=== PATIENT | female | born 1945 | race Caucasian/White ===

== ENCOUNTER 2019-01-21 19:28 | Observation (INO) ==
--- NOTE | 2019-01-21 20:38 | Emergency Department Note ---
Disposition Clinical Impression: End stage renal disease, Missed dialysis Disposition: Admitted As Inpatient Condition: Fair Referrals: NONE,PCP [Primary Care Provider] - Time of Disposition: 20:38 General Adult HPI - General Chief complaint: ED General Medical Stated complaint: has not had dialysis Time Seen by Provider: 01/21/19 19:45 Source: patient, family Limitations: no limitations Nursing Notes Reviewed: Yes Vital Signs Reviewed: Yes - History of Present Illness HPI Narrative: Attestation note: Patient was seen with the emergency medicine resident/nurse pract itioner/physician human resources executive assistant/transitional resident/medical student: Dr. Sourav Smith, I was present for the significant portions of the performance and interpretation of procedures and EKGs. I have personally performed a face to face evaluation on this patient. I have reviewed and agree with history and physical examination patient management and disposition. 74-year-old female history of end-stage renal disease on did not dialysis on Monday due to lack of access Monday had a port placed on 1 month today they went up 3 pounds off and it did not work her urologist Dr. Evans requested family commands be evaluated and admitted for port placement and dialysis. EKG shows what appears to be paced rhythm without signs of any acute ischemic changes or acute hyperkalemic changes. Patient's O lites are pending we are paging Dr. Evans directly. Patient appears hemodynamically stable. Disposition pending Pain Scale: 7 - Related Data Allergies Allergy/AdvReac Type Severity Reaction Status Date / Time codeine AdvReac Hives Verified 01/21/19 19:45 Past Medical History - Past Medical History Medical history: Reports: atrial fibrillation, CVA, diabetes, hyperlipidemia, hypertension, thyroid disease Psychiatric history: Reports: bipolar - Social History Smoking Status: Current every day smoker Alcohol use: Reports: none Drug use: Reports: none Course Vital Signs Temperature 97.7 F 01/21/19 19:43 Pulse Rate 66 01/21/19 19:43 Respiratory Rate 16 01/21/19 19:43 Blood Pressure 153/79 01/21/19 19:43 O2 Sat by Pulse Oximetry 96 01/21/19 19:43 Temperature 97.7 F 01/21/19 20:13 Pulse Rate 66 01/21/19 20:13 Respiratory Rate 16 01/21/19 20:13 Blood Pressure 153/79 01/21/19 20:13 O2 Sat by Pulse Oximetry 96 01/21/19 20:13 Oxygen Delivery Oxygen Delivery Room Air
--- NOTE | 2019-01-21 20:41 | Emergency Department Note ---
Disposition Clinical Impression: End stage renal disease, Missed dialysis Disposition: Admitted As Inpatient Condition: Fair Forms: ED Satisfaction Letter, Work/School Release Time of Disposition: 21:23 General Adult HPI - General Chief complaint: ED General Medical Stated complaint: has not had dialysis Time Seen by Provider: 01/21/19 19:45 Source: patient Mode of arrival: ambulatory Limitations: no limitations Nursing Notes Reviewed: Yes Vital Signs Reviewed: Yes - History of Present Illness HPI Narrative: Patient is a 74-year-old female with past medical history of atrial fibrillation, CVA, diabetes, hypertension, thyroid disease, pacemaker, Graves' disease as well as history of back surgery presents to the ED for evaluation after missing dialysis. Patient states that she did not have dialysis last Monday when she is normally scheduled 2 and then on Monday she had a chest port placed for dialysis and that chest port worked on Monday however today during dialysis it stopped functioning and they are able to take off 3 pounds. She is primary complaining of shortness of breath at this time but no other associated symptoms. She is told to come into the ER for admission by Dr. Evans. - Related Data Allergies Allergy/AdvReac Type Severity Reaction Status Date / Time codeine AdvReac Hives Verified 01/21/19 21:27 All systems ED: reviewed and negative except as stated. Review of Systems: As Per HPI Constitutional: Denies: fever, chills Cardiovascular: Denies: chest pain, palpitations, dyspnea on exertion, edema, syncope, paroxysmal nocturnal dyspnea Respiratory: Reports: dyspnea. Denies: cough, wheezes, hemoptysis, sputum production Gastrointestinal: Denies: nausea, vomiting, diarrhea Past Medical History - Past Medical History Attestation: Yes The following information was validated with the patient. Medical history: Reports: atrial fibrillation, CVA, diabetes, hyperlipidemia, hypertension, thyroid disease Psychiatric history: Reports: bipolar - Social History Smoking Status: Current every day smoker Alcohol use: Reports: none Drug use: Reports: none Physical Exam CONSTITUTIONAL: A&O X 3, in no apparent distress HEAD: Normocephalic; atraumatic EYES: PERRL, no scleral icterus NOSE: The nose is normal in appearance without rhinorrhea NECK: No JVD or distended neck veins RESP: Normal chest excursion with respiration; breath sounds clear and equal bilaterally; no wheezes, rhonchi, or rales CARD: Regular rhythm, without murmurs, rub or gallop ABD: Distended; non-tender, soft, without rigidity, rebound or guarding,no pulsatile mass CHEST: No pain with palpation SKIN: Normal for age and race; warm and dry without diaphoresis ; no apparent lesions EXTREMITIES: Pulses are 2 plus and equal times 4 extremities, no peripheral edema or calf muscle pain Course Course Narrative: Patient was brought in for admission to the hospital by nephrology with Dr. Evans due to malfunctioning chest port which is inhibiting her from receiving her dialysis. She was able to undergo partial dialysis today and receiving 3 pounds of fluid removal. She will undergo evaluation of her electrolytes as well as a chest x-ray for dyspnea. Her initial EKG is a paced rhythm at 68 bpm with no signs of hyperacute T waves or interval prolongation. I discussed the patient's case with Dr. Rodriguez with nephrology and he recommended admission of the patient to be seen by IR tomorrow for dialysis line malfunction. Requested admission to obs. Will see her in the morning and consult IR. - Reevaluation(s) Reevaluation #1: ED workup is completed patient's potassium is little high at 5.4 creatinine is only like 2.4. Chest x-ray shows no florid pulmonary edema. Discussed case with the hospitalist Dr. Wong. Patient is admitted in stable condition. Consult was placed to nephrology and interventional radiology.. Time: 22:10 Vital Signs Temperature 97.7 F 01/21/19 19:43 Pulse Rate 66 01/21/19 19:43 Respiratory Rate 16 01/21/19 19:43 Blood Pressure 153/79 01/21/19 19:43 O2 Sat by Pulse Oximetry 96 01/21/19 19:43 Temperature 97.7 F 01/21/19 20:13 Pulse Rate 60 01/21/19 20:58 Respiratory Rate 16 01/21/19 20:58 Blood Pressure 150/79 01/21/19 20:58 O2 Sat by Pulse Oximetry 98 01/21/19 20:58 Oxygen Delivery Oxygen Delivery Room Air Medical Decision Making - Medical Records Medical records reviewed: Yes I reviewed the patient's medical records. - Lab Data Lab results reviewed: Yes I reviewed the patient's lab results. Result diagrams: 01/21/19 20:35 01/21/19 20:35 Lab Results 01/21/19 01/21/19 01/21/19 Range/Units 20:35 20:35 20:35 WBC 6.3 (4.3-11.1) K/mcL RBC 3.05 L (3.82-4.97) M/mcL Hgb 11.4 L (11.5-15.4) g/dL Hct 31.8 L (35.3-44.9) % MCV 104.3 H (83.0-100.0) fL MCH 37.4 H (28.0-33.3) pg MCHC 35.8 H (31.6-35.5) g/dL RDW 14.6 H (11.5-14.5) % Plt Count 160 (140-400) K/mcL MPV 9.6 (9.4-12.4) fL Sodium 134 L (136-145) mEq/L Potassium 5.4 H (3.5-5.1) mEq/L Chloride 98 (98-107) mEq/L Carbon Dioxide 27 (23-29) mEq/L BUN 39 H (8-23) mg/dL Creatinine 2.85 H (0.60-1.20) mg/dL Est GFR ( Amer) 20 L (> 60) Est GFR (Non-Af Amer) 16 L (> 60) BUN/Creatinine Ratio 14 (6-26) Glucose 235 H (70-105) mg/dL Calculated Osmolality 295 (280-300) Lactic Acid 1.3 (0.5-2.2) mmol/L Calcium 9.1 (8.6-10.3) mg/dL - EKG Data EKG #1 EKG attestation: Yes I reviewed and interpreted this EKG. EKG results narrative: EKG done at 20:24 shows paced rhythm at a rate of 68 bpm. Luis M - Luis M Situation: Demographics, MOA Background: Presenting Complaint, Relevant PMH, Meds, & Allergies Assessment: Vital Signs, Course and respsone to treatment, Exam Concerns, Patient/Family Expectation, Pertinant Lab Results, Outstanding Labs Recommendation: Barrier(s) to disposition, Recommendation based on pending studies, treatments, or consults S.Art.Brennon Report Given to: Dr. Keiko Asencio Repor Time: 21:23
[2019-01-21 20:47] LABS: Hematocrit 31.8 % (35.3-44.9); Hemoglobin 11.4 g/dL (11.5-15.4); Mean Corpuscular HGB Conc 35.8 g/dL (31.6-35.5); Mean Corpuscular Hemoglobin 37.4 pg (28.0-33.3); Mean Corpuscular Volume 104.3 fL (83.0-100.0); Mean Platelet Volume 9.6 fL (9.4-12.4); Platelet Count 160 K/mcL (140-400); Red Blood Count 3.05 M/mcL (3.82-4.97); Red Cell Distribution Width 14.6 % (11.5-14.5); White Blood Count 6.3 K/mcL (4.3-11.1)
[2019-01-21 21:09] LABS: Calcium 9.1 mg/dL (8.6-10.3); Potassium 5.4 mEq/L (3.5-5.1)
[2019-01-22] MEDS ORDERED: Naloxone 0.4 MG/ML INJ IVP PRN (00:37)
--- NOTE | 2019-01-22 00:43 | Internal Med History&Physical ---
Date of Encounter: 01/21/19 Time of Encounter: 23:30 Internal Medicine - H&P: HPI Chief complaint: End-stage renal disease Admitted From: Emergency Dept Plans for Post Hospital Care: Home History of present illness: Ms. Loaiza is a 74 year old female Patient came to the emergency room from dialysis after her access became unusable. Patient has a history of end-stage renal disease, for started dialysis in April of last year. She initially had a chest port site for her dialysis but this had to be removed and a fistula was placed in her right arm. This eventually became clotted off and patient was then given a second port in her chest. At dialysis this became compromised and was not able to be used. The fire fighting equipment specialist requested the patient go to the emergency room to be evaluated and eventually admitted to be seen by interventional radiology for a new access to be placed. She has associated shortness of breath but denies chest pain. In the emergency room patient's initial vital signs were within normal limits CBC: White count 6.3, hemoglobin 11.4, platelets 160 BMP: Sodium 134, potassium 5.4, creatinine 2.85, GFR 16, glucose 235. Lactic acid 1.3 Calcium 9.1 Chest x-ray negative for cardiopulmonary abnormality EKG demonstrated a paced rhythm with a rate of 68. No ischemic changes. Patient was admitted to the hospital for further management. Nephrology and interventional radiology consults were placed in the ER. Upon my evaluation, patient is resting comfortably in the ER bed in no acute distress. She denies chest pain, abdominal pain, nausea, vomiting, diarrhea, constipation and shortness of breath. She had a pacemaker placed secondary to a cardiac in 2011. She is insulin-dependent diabetic. She has family history notable for kidney failure in her father as well as diabetes. Her mother had diabetes as well and her grandfather had history of heart disease. She is a full code. Past Med Surg Social Fam HX - Past Medical History Medical history: atrial fibrillation, CVA, diabetes, hyperlipidemia, hypertens ion, thyroid disease Additional medical history: pacemaker, grave's disease Psychiatric history: bipolar - Past Surgical History Additional surgical history: back surgery x2, - Social History Smoking Status: Current every day smoker Alcohol use: none Drug use: none - Family History Father Name: Khai Family Member Ethnicity: Non- Living Status: Age at : 49 Hx Family Cardiac Disorders: Yes Hx Family Respiratory Disorders: Yes Hx Family GI Disorders: Yes Internal Medicine - H&P: Meds Allopurinol [Zyloprim 100 MG] 100 mg PO QAM 01/21/19 [History] Amlodipine Besylate 10 mg PO QAM 01/21/19 [History] Atorvastatin [Lipitor] 40 mg PO QAM 01/21/19 [History] Buspirone HCl [Buspar] 10 mg PO BID 01/21/19 [History] Calcium Acetate [Phos-LO] 667 mg PO DAILY 01/21/19 [History] Calcium Acetate [Phos-LO] 667 mg PO TIDWM 01/21/19 [History] DiphenhydraMINE [Benadryl] 25 mg PO HS PRN 01/21/19 [History] Fluticasone Propionate Nasal [Flonase] 1 spray NS DAILY PRN 01/21/19 [History] Furosemide [Lasix] 40 mg PO BID 01/21/19 [History] Insulin Glargine,Hum.rec.anlog [Basaglar Kwikpen U-100] 20 - 50 unit SQ HS PRN 01/21/19 [History] Levothyroxine Sodium [Euthyrox] 200 mcg PO QAM 01/21/19 [History] Lidocaine/Prilocaine [Emla] 1 appl TP AD 01/21/19 [History] Melatonin 10 mg PO HS PRN 01/21/19 [History] Paroxetine HCl [Paxil] 40 mg PO DAILY 01/21/19 [History] Potassium Chloride [K-Tab ER] 10 meq PO DAILY 01/21/19 [History] metOLazone [Zaroxolyn] 2.5 mg PO QAM 01/21/19 [History] Allergy/AdvReac Type Severity Reaction Status Date / Time codeine AdvReac Hives Verified 01/21/19 21:27 All Systems PM: A 10-system review of systems was performed and is negative for pertinent findings except as documented above in the HPI. - Constitutional Vitals: Temp Pulse Resp BP Pulse Ox 97.7 F 73 18 133/62 98 01/21/19 20:13 01/21/19 22:49 01/22/19 00:05 01/22/19 00:05 01/21/19 22:49 General appearance: Present: cooperative, A&O X 3, pleasant, no acute distress, answers questions appropriately Exam: - - Head Head exam: Present: normal inspection - Eye Eye exam: Present: EOMI, normal appearance - Respiratory Respiratory exam: Present: CTAB. Absent: chest wall tenderness, rales, respiratory distress, rhonchi, wheezes - Cardiovascular Cardiovascular exam: Present: RRR. Absent: diastolic murmur, systolic murmur - GI/Abdominal GI/Abdominal exam: Present: soft. Absent: tenderness - Extremities Exam Extremities exam: Present: warm, radial pulses palpable and symmetrical. Absent: calf tenderness, pedal edema, tenderness - Neurological Exam Neurological exam: Present: no focal deficits, strengths equal and symetr throughout. Absent: motor sensory deficit, facial droop, speech deficit - Skin Skin exam: Present: dry, normal color, warm Internal Med - H&P Results - Labs CBC & Chem 7: 01/21/19 20:35 01/21/19 20:35 Labs: Short CBC 01/21/19 Range/Units 20:35 WBC 6.3 (4.3-11.1) K/mcL Hgb 11.4 L (11.5-15.4) g/dL Hct 31.8 L (35.3-44.9) % Plt Count 160 (140-400) K/mcL BMP 01/21/19 20:35 Sodium 134 L Potassium 5.4 H Chloride 98 Carbon Dioxide 27 BUN 39 H Creatinine 2.85 H Glucose 235 H Calcium 9.1 - Impressions ITS Impressions Chest X-Ray 01/21/19 19:58 IMPRESSION: 1. No acute cardiopulmonary process identified. D/ / Marc Marley MD / Marc Marley MD Interpreting Provider: Marc Marley MD - Assessment and Plan (1) End stage renal disease Current Visit: Yes Status: Acute Assessment and plan: Patient has lost her dialysis access. This is the third time this has happened to her. Nephrology has contacted interventional radiology for assistance to have new access to be placed. Follow-up nephrology and interventional radiology recommendations Nothing by mouth after midnight AM labs with phosphorus (2) Hyperkalemia Current Visit: Yes Status: Acute Assessment and plan: Patient's potassium was 5.4 in the emergency room. Likely secondary to end- stage renal disease. She has been elevated in the past, normal range is 4-5. Repeat labs in the morning Arrange for dialysis with interventional radiology consultation (3) Diabetes Current Visit: Yes Status: Acute Assessment and plan: Patient is an insulin dependent diabetic Monitor sugars Q6H NPO Low dose insulin sliding scale as needed Hold home meds. 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
[2019-01-22 05:54] LABS: Prothrombin Time 11.4 Seconds (9.4-12.1)
[2019-01-22 05:58] LABS: Hematocrit 31.2 % (35.3-44.9); Hemoglobin 10.6 g/dL (11.5-15.4); Mean Corpuscular Hemoglobin 34.8 pg (28.0-33.3); Mean Corpuscular Volume 102.3 fL (83.0-100.0); Mean Platelet Volume 9.4 fL (9.4-12.4); Platelet Count 157 K/mcL (140-400); Red Blood Count 3.05 M/mcL (3.82-4.97); Red Cell Distribution Width 14.4 % (11.5-14.5); White Blood Count 6.3 K/mcL (4.3-11.1)
[2019-01-22 06:10] LABS: Albumin 3.8 g/dL (3.5-5.7); Albumin/Globulin Ratio 1.2 (1.1-2.2); Bilirubin,Total 0.4 mg/dL (0.3-1.0); Calcium 9.5 mg/dL (8.6-10.3); Globulin 3.3 g/dL (2.4-3.5); Phosphorous 3.9 mg/dL (2.7-4.5); Total Protein 7.1 g/dL (6.4-8.9)
[2019-01-22 08:11] LABS: Hepatitis B Surface Antibody < 3.10 mIU/mL
[2019-01-22 08:21] LABS: Hepatitis B Surface Antigen Nonreactive (Nonreactive)
[2019-01-22] MEDS ORDERED: *HR* HYDROcodone/Acet 5/325 mg TABLET PO ONE (08:56)
[2019-01-22] MEDS ORDERED: Heparin 1,000 UNITS/500 mL 500 ML ONE (09:08)
[2019-01-22] MEDS ORDERED: *HR* Heparin 5,000 UNIT/ML VIAL ONE (10:13)
[2019-01-22] MEDS ORDERED: Fluticasone Propionate Nasal 50 MCG/SPRAY BOTTLE NS PRN (10:52)
[2019-01-22] MEDS ORDERED: NON-FORMULARY MEDICATION 1 EACH EACH (Melatonin 10 MG) PO PRN (10:52)
[2019-01-22] MEDS ORDERED: *HR* Dextrose 50 % in Water (Syg) 50 ML SYRINGE IVP PRN (10:53)
[2019-01-22] MEDS ORDERED: D5% in Water 1,000 ML IVC PRN (10:53)
[2019-01-22] MEDS ORDERED: Dextrose Gel 15 GM/37.5 ML TUBE PO PRN ×2 (10:53)
--- NOTE | 2019-01-22 10:56 | Event Note ---
Date of Encounter: 01/22/19 Time of Encounter: 08:00 H&P reviewed. Patient with history of ESRD, atrial fibrillation, was admitted due to lack of dialysis access. Will get new HD catheter inserted by IR, resume HD as per nephro, and discharge home soon after HD if the catheter is working properly.
[2019-01-22] MEDS ORDERED: Melatonin 3 MG TABLET PO PRN (10:59)
--- NOTE | 2019-01-22 11:41 | Nephrology Consult Note ---
Date of Encounter: 01/22/19 Time of Encounter: 11:41 Assessment and Plan (1) End stage renal disease Status: Acute HD MWF. Renal vitamins. Renal dose medications. Renal diet. Additional dialysis and ultrafiltration as needed. The patient had her tunneled dialysis catheter exchange. We will arrange for dialysis today. If no problem with the dialysis access then okay for her to be discharged today History of Present Illness - Reason for Consult Consult date: 01/22/19 end stage renal disease - Chief Complaint line malfunction - History of Present Illness Ms. Loaiza is a 74 yo woman with a history of end-stage renal disease. She presents after her dialysis line was not operating properly on an outpatient basis. The patient has no new complaints. She denies chest pain, shortness of breath, nausea, vomiting, or diarrhea. She performs dialysis on a Monday was a Monday schedule. Past Med Surg Social Fam HX - Past Medical History Medical history: atrial fibrillation, CVA, diabetes, hyperlipidemia, hypertension, thyroid disease Additional medical history: pacemaker, grave's disease Psychiatric history: bipolar - Past Surgical History Additional surgical history: back surgery x2, - Social History Smoking Status: Current every day smoker Smokeless Tobacco Status: No Alcohol use: none Drug use: none - Family History Father Name: Khai Family Member Ethnicity: Non- Living Status: Age at : 49 Hx Family Cardiac Disorders: Yes Hx Family Respiratory Disorders: Yes Hx Family GI Disorders: Yes Medications and Allergies Allopurinol [Zyloprim 100 MG] 100 mg PO QAM 01/21/19 [History] Amlodipine Besylate 10 mg PO QAM 01/21/19 [History] Atorvastatin [Lipitor] 40 mg PO QAM 01/21/19 [History] Buspirone HCl [Buspar] 10 mg PO BID 01/21/19 [History] Calcium Acetate [Phos-LO] 667 mg PO DAILY 01/21/19 [History] Calcium Acetate [Phos-LO] 667 mg PO TIDWM 01/21/19 [History] DiphenhydraMINE [Benadryl] 25 mg PO HS PRN 01/21/19 [History] Fluticasone Propionate Nasal [Flonase] 1 spray NS DAILY PRN 01/21/19 [History] Furosemide [Lasix] 40 mg PO BID 01/21/19 [History] Insulin Glargine,Hum.rec.anlog [Anthonyaglar Prabhapen U-100] 20 - 50 unit SQ HS PRN 01/21/19 [History] Levothyroxine Sodium [Euthyrox] 200 mcg PO QAM 01/21/19 [History] Lidocaine/Prilocaine [Emla] 1 appl TP AD 01/21/19 [History] Melatonin 10 mg PO HS PRN 01/21/19 [History] Paroxetine HCl [Paxil] 40 mg PO DAILY 01/21/19 [History] Potassium Chloride [K-Tab ER] 10 meq PO DAILY 01/21/19 [History] metOLazone [Zaroxolyn] 2.5 mg PO QAM 01/21/19 [History] Allergy/AdvReac Type Severity Reaction Status Date / Time codeine AdvReac Hives Verified 01/21/19 21:27 Review of Systems All Systems: reviewed and no additional remarkable complaints except as stated (as documented in the history of present illness) Exam - Vital Signs Vital signs: Initial Vital Signs Temp Pulse Resp BP Pulse Ox 97.7 F 66 16 153/79 96 01/21/19 19:43 01/21/19 19:43 01/21/19 19:43 01/21/19 19:43 01/21/19 19:43 Vital Signs - Last 8 Hours Temp Pulse Resp BP Pulse Ox 01/22/19 11:33 97.6 F 67 16 126/70 96 01/22/19 08:40 97 01/22/19 07:39 97.7 F 67 16 128/71 97 01/22/19 04:17 97.6 F 65 17 124/79 97 Intake and Output 01/21/19 01/22/19 01/22/19 23:59 07:59 15:59 Intake Total 0 / 0 Balance 0 / 0 Intake: Oral 0 / 0 Other: Meal NPO Percent of Meal Consumed 0% # Voids 1 Weight 87.18 kg Blood Glucose* 140 215 - General Appearance General appearance: well-developed, well-nourished EENT: ATNC Neck: supple Respiratory: clear Cardiology: regular rate - Dialysis Access Dialysis Vascular Access: Venous Catheter Gastrointestinal: no tenderness Integumentary: warm and dry Neurologic: alert and oriented x3 Results - Lab Results 01/22/19 05:22 01/22/19 05:22 Most recent lab results 01/22/19 05:22 Calcium 9.5 Phosphorus 3.9 Consult Discharge Plan - Plan Instructions: Diabetes Mellitus Type 2 in Adults (DC) Referrals: Eric Salgado MD [Partnered Physician] - 01/30/19 10:30 am
[2019-01-22] MEDS ORDERED: Calcium Acetate 667 MG CAPSULE PO SCH (12:00)
[2019-01-22] MEDS: Insulin LISPRO 300 UNITS/3 ML VIAL SQ SCH ×2 (12:03→16:34)
--- NOTE | 2019-01-22 12:24 | IR Procedure Note ---
Date of procedure: 01/22/19 Consent Obtained: Verbal consent, Written consent Timeout: Correct patient and procedure verified, Correct site verified, Time out performed, Skin prep completed Was there an assistant refinery operator present: No Results/Findings: Tunneled HD catheter exchange performed Estimated blood loss (cc): 1 Complications: None; Tolerated procedure well Indications: Malfunctioning HD catheter Procedure Performed: Tunneled HD catheter exchange Site/Technique: Tunneled HD catheter exchanged in VIR Results/Findings (any specimens removed): New catheter in good position Post Procedure Treatment Plan: OK to use Specimen: None
[2019-01-22] MEDS ORDERED: *HR* Heparin 10,000 UNIT/10 ML VIAL IV PRN (15:05)
[2019-01-22] MEDS ORDERED: 0.9 % Sodium Chloride 250 ML IVC PRN (15:05)
--- NOTE | 2019-01-22 15:08 | Discharge Summary ---
- NOTES TO OUTPATIENT PROVIDER Notes to Outpatient Provider: Resume her usual HD schedule Orders not resulted at time of discharge: Pending orders 01/21/19 19:57 Urinalysis reflex Microscopic [URIN] Stat 01/23/19 04:00 Basic Metabolic Panel AM 0400 Phosphorous AM 0400 Date of Encounter: 01/22/19 Time of Encounter: 08:00 - Discharge Diagnosis (1) End stage renal disease Priority: Primary Status: Acute (2) Diabetes Priority: Secondary Status: Acute Qualifiers: Diabetes mellitus type: type 2 Diabetes mellitus custodial insulin use: with superintendent container terminal use Diabetes mellitus complication status: with hyperglycemia Qualified Code(s): E11.65 - Type 2 diabetes mellitus with hyperglycemia; Z79.4 - intermediate (current) use of insulin (3) Hyperkalemia Priority: Secondary Status: Acute (4) DVT prophylaxis Priority: Secondary Status: Acute Hospital course: Ms. Loaiza is a 74 year old female with history of ESRD, atrial fibrillation, who was admitted due to dysfunctional HD catheter. New tunnelled HD catheter was inserted by IR on 01/22, underwent short session of HD thereafter, and is discharged home in stable condition. Resume her usual HD schedule from tomorrow. 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 - Time Spent with Patient Total time spent providing and/or coordinating discharge services: 28 mins Time spent: D/C greater than 8 hours after Admission - Discharge Medications Prescriptions: Continued Allopurinol [Zyloprim 100 MG] 100 mg PO QAM Amlodipine Besylate 10 mg PO QAM Atorvastatin [Lipitor] 40 mg PO QAM Buspirone HCl [Buspar] 10 mg PO BID Calcium Acetate [Phos-LO] 667 mg PO TIDWM Calcium Acetate [Phos-LO] 667 mg PO DAILY Fluticasone Propionate Nasal [Flonase] 1 spray NS DAILY PRN PRN Reason: Allergy Symptoms Furosemide [Lasix] 40 mg PO BID Insulin Glargine,Hum.rec.anlog [Basaglar Kwikpen U-100] 20 - 50 unit SQ HS PRN PRN Reason: BLOOD GLUCOSE Levothyroxine Sodium [Euthyrox] 200 mcg PO QAM Lidocaine/Prilocaine [Emla] 1 appl TP AD metOLazone [Zaroxolyn] 2.5 mg PO QAM Paroxetine HCl [Paxil] 40 mg PO DAILY Potassium Chloride [K-Tab ER] 10 meq PO DAILY DiphenhydraMINE [Benadryl] 25 mg PO HS PRN PRN Reason: Sleep Melatonin 10 mg PO HS PRN PRN Reason: Sleep Home Medications: Allopurinol [Zyloprim 100 MG] 100 mg PO QAM 01/21/19 [History] Amlodipine Besylate 10 mg PO QAM 01/21/19 [History] Atorvastatin [Lipitor] 40 mg PO QAM 01/21/19 [History] Buspirone HCl [Buspar] 10 mg PO BID 01/21/19 [History] Calcium Acetate [Phos-LO] 667 mg PO DAILY 01/21/19 [History] Calcium Acetate [Phos-LO] 667 mg PO TIDWM 01/21/19 [History] DiphenhydraMINE [Benadryl] 25 mg PO HS PRN 01/21/19 [History] Fluticasone Propionate Nasal [Flonase] 1 spray NS DAILY PRN 01/21/19 [History] Furosemide [Lasix] 40 mg PO BID 01/21/19 [History] Insulin Glargine,Hum.rec.anlog [Basaglar Kwikpen U-100] 20 - 50 unit SQ HS PRN 01/21/19 [History] Levothyroxine Sodium [Euthyrox] 200 mcg PO QAM 01/21/19 [History] Lidocaine/Prilocaine [Emla] 1 appl TP AD 01/21/19 [History] Melatonin 10 mg PO HS PRN 01/21/19 [History] Paroxetine HCl [Paxil] 40 mg PO DAILY 01/21/19 [History] Potassium Chloride [K-Tab ER] 10 meq PO DAILY 01/21/19 [History] metOLazone [Zaroxolyn] 2.5 mg PO QAM 01/21/19 [History] Allergies/Adverse Reactions: Allergy/AdvReac Type Severity Reaction Status Date / Time codeine AdvReac Hives Verified 01/21/19 21:27 Date of admission: 01/21/19 23:59 Primary care physician: PCP NONE Consults: 01/21/19 20:46 Consult to Nephrology [CONS] Stat Consulting Provider: Kidney Maria Luz/RENÉE/JESUS/LINDA Reason for Consult: ESRD with Dialysis; Spoke with Dr. Rodriguez. Time Notified: 20:47 Call Completed: Yes 01/21/19 22:08 Consult to Interventional Radiology [CONS] Stat Consulting Provider: Radiology Interventional Cols Reason for Consult: Per nephrology to consult for new chest port access for dialysis: Port is not functioning Call Completed: No 01/22/19 07:48 Consult to Interventional Radiology [CONS] Routine Consulting Provider: Radiology Interventional Cols Reason for Consult: Tunnel cath exchange Time Notified: 07:48 Call Completed: Yes 01/22/19 09:20 Consult to Nurse Navigator [CONS] Routine Comment: hd - Constitutional Vitals: Temp Pulse Resp BP Pulse Ox 97.6 F 67 16 126/70 96 01/22/19 11:33 01/22/19 11:33 01/22/19 11:33 01/22/19 11:33 01/22/19 11:33 General appearance: Present: cooperative, A&O X 3, pleasant, no acute distress, answers questions appropriately Exam: General: Alert and oriented, not in acute distress. Cardiovascular:Normal S1 & S2, No JVD. Pulse regular. Chest: HD catheter in situ on R upper chest wall. Dressing c/d/i Lungs: clear to auscultation, no wheezes/rales Abdomen:Soft, non-tender, no rigidity. Extremities:No deformity or swelling Neurological:Normal cognition and motor skills. Non-focal - Patient Status Disposition: Home, Self-Care Condition: Fair Overall status at discharge: patient is progressing back to baseline - Discharge Instructions Instructions: Diabetes Mellitus Type 2 in Adults (DC) Follow Up With: NONE,PCP [Primary Care Provider] - - Diet and Activity Activity: resume usual activities as tolerated Diet: diabetic diet
[2019-01-22] MEDS ORDERED: 0.9 % Sodium Chloride 1,000 ML PRIME SCH (15:15)
[2019-01-22] MEDS ORDERED: Furosemide 40 MG TABLET PO SCH ×2 (17:00→21:00)
[2019-01-22] MEDS ORDERED: 0.9 % Sodium Chloride 1,000 ML ONE (17:08)
[2019-01-22 17:47] VITALS: BP 156/85
[2019-01-22] MEDS ORDERED: Insulin LISPRO 300 UNITS/3 ML VIAL SQ SCH (21:00)
[2019-01-22] MEDS ORDERED: BUSPIRONE HCL 10 MG TABLET PO SCH (21:00)
[2019-01-23] MEDS ORDERED: metOLazone 2.5 MG TABLET PO SCH ×2 (07:30→09:00)
[2019-01-23] MEDS ORDERED: NON-FORMULARY MEDICATION 1 EACH EACH (Levothyroxine Sodium [Euthyrox] 200 MCG) PO SCH (09:00)
[2019-01-23] MEDS ORDERED: amLODIPine 5 MG TABLET PO SCH (09:00)
--- NOTE | 2019-01-23 18:18 | Electrocardiograph Report ---
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 Sinus or ectopic atrial rhythm, 1st degree AVB Prolonged QT interval Electronically Signed On 01-23-2019 18:16:30 EDT by Binta Mckinney
== END 2019-01-22 17:58 | disposition home or self-care (01) ==
LOC: EMEROOARM 19:28 → 2ANU 19:28 → SUATTDRO 23:59 → 2ANU 01-22 00:37
PROVIDERS: ADMIT Family Medicine; ATTEND Internal Medicine

== ENCOUNTER 2019-06-06 09:58 | Inpatient (IN) ==
[2019-06-06] MEDS ORDERED: Naloxone 0.4 MG/ML INJ IVP PRN (12:03)
[2019-06-06] MEDS ORDERED: D5% in Water 1,000 ML IVC PRN (12:07)
[2019-06-06] MEDS ORDERED: Dextrose Gel 15 GM/37.5 ML TUBE PO PRN ×2 (12:07)
[2019-06-06] MEDS ORDERED: *HR* Dextrose 50 % in Water (Syg) 50 ML SYRINGE IVP PRN (12:07)
[2019-06-06 13:42] LABS: Basophils # 0.1 K/mcL (0.0-0.2); Basophils % 0.5 %; Eosinophils # 0.2 K/mcL (0.0-0.6); Eosinophils % 1.5 %; Hematocrit 40.6 % (35.3-44.9); Hemoglobin 14.6 g/dL (11.5-15.4); Immature Granulocytes % 0.7 % (0-4); Lymphocytes # 1.3 K/mcL (0.6-4.6); Lymphocytes % 11.8 %; Mean Corpuscular Hemoglobin 36.6 pg (28.0-33.3); Mean Corpuscular Volume 101.8 fL (83.0-100.0); Mean Platelet Volume 9.6 fL (9.4-12.4); Monocytes # 0.4 K/mcL (0.0-1.3); Monocytes % 3.2 %; Neutrophils # 9.3 K/mcL (1.6-8.9); Platelet Count 215 K/mcL (140-400); Red Blood Count 3.99 M/mcL (3.82-4.97); Red Cell Distribution Width 13.1 % (11.5-14.5); Segmented Neutrophils % 82.3 %; White Blood Count 11.3 K/mcL (4.3-11.1)
[2019-06-06 13:45] LABS: INR 1.1; Prothrombin Time 12.2 Seconds (9.4-12.1)
[2019-06-06] MEDS ORDERED: Ipratropium/Albuterol Neb 3 ML IH PRN (14:03)
[2019-06-06 14:13] LABS: Calcium 9.1 mg/dL (8.6-10.3); Magnesium 1.7 mg/dL (1.6-2.6); Potassium 3.4 mEq/L (3.5-5.1); Troponin I 0.09 ng/mL (< 0.04)
[2019-06-06] MEDS ORDERED: Fluticasone Propionate Nasal 50 MCG/SPRAY BOTTLE NS PRN (15:41)
[2019-06-06] MEDS ORDERED: levETIRAcetam 1,000 MG in 0.9 % Sodium Chloride 100 ML IVPB ONE (15:42)
[2019-06-06] MEDS ORDERED: *HR* LORazepam 2 MG/ML VIAL IVP PRN (15:43)
[2019-06-06] MEDS ORDERED: Cholecalciferol (D-3) 1,000 UNIT (25MCG) TABLET PO SCH (15:45)
[2019-06-06] MEDS: Insulin LISPRO 300 UNITS/3 ML VIAL SQ SCH ×2 (17:17→20:50)
[2019-06-06] MEDS: Acetaminophen 325 MG TABLET PO PRN (18:13)
[2019-06-06] MEDS ORDERED: Perit. Dialysis with Dex 2.5 % 6,000 ML PERITONEAL ONE (19:00)
[2019-06-06] MEDS ORDERED: cefTRIAXone 2,000 MG in Water for inj. (sterile) 20 ML IVP SCH (19:00)
[2019-06-06 19:26] LABS: Bilirubin,Urine Small (Negative); Blood,Urine Moderate (Negative); Clarity,Urine Turbid (Clear); Color,Urine Yellow (Yellow); Glucose,Urine (UA) Normal (Normal); Ketones,Urine Trace mg/dL (Negative); Leukocyte Esterase,Urine Large (Negative); Nitrite,Urine Negative (Negative); Protein,Urine 100 mg/dL (Neg-Trace); Specific Gravity,Urine 1.023 (1.010-1.025); Urobilinogen,Urine Normal (Normal)
[2019-06-06 19:27] LABS: Bacteria,Urine Many per hpf (None-Few); Squamous Epithelial Cell,Urine Many per lpf (None-Few); WBC,Urine TNTC per hpf (0-3)
[2019-06-06] MEDS: Calcium Acetate 667 MG CAPSULE PO SCH (19:32)
[2019-06-06] MEDS ORDERED: 0.9 % Sodium Chloride 500 ML IVC ONE (19:37)
[2019-06-06 19:40] LABS: RBC,Urine Present per hpf (0-3)
[2019-06-06 19:43] LABS: Hepatitis B Surface Antibody 7.25 mIU/mL
[2019-06-06] MEDS ORDERED: 0.9 % Sodium Chloride 500 ML ONE (19:51)
[2019-06-06 19:55] LABS: Hepatitis B Surface Antigen Nonreactive (Nonreactive)
[2019-06-06] MEDS ORDERED: Furosemide 40 MG TABLET PO SCH (21:00)
[2019-06-06] MEDS ORDERED: Acetaminophen IV 500 MG/50 ML INFUS..BTL IVPB ONE (22:23)
[2019-06-07 02:38] LABS: Basophils # 0.1 K/mcL (0.0-0.2); Basophils % 0.5 %; Eosinophils # 0.3 K/mcL (0.0-0.6); Eosinophils % 2.6 %; Hematocrit 33.6 % (35.3-44.9); Immature Granulocytes % 1.2 % (0-4); Lymphocytes # 1.7 K/mcL (0.6-4.6); Mean Corpuscular HGB Conc 35.7 g/dL (31.6-35.5); Mean Corpuscular Hemoglobin 36.5 pg (28.0-33.3); Mean Corpuscular Volume 102.1 fL (83.0-100.0); Mean Platelet Volume 10.1 fL (9.4-12.4); Monocytes # 0.6 K/mcL (0.0-1.3); Monocytes % 5.6 %; Neutrophils # 8.4 K/mcL (1.6-8.9); Platelet Count 181 K/mcL (140-400); Red Blood Count 3.29 M/mcL (3.82-4.97); Red Cell Distribution Width 13.2 % (11.5-14.5); Segmented Neutrophils % 75.1 %; White Blood Count 11.2 K/mcL (4.3-11.1)
[2019-06-07] MEDS: Acetaminophen 325 MG TABLET PO PRN (02:45)
[2019-06-07] MEDS: levETIRAcetam 250 MG TABLET PO SCH ×2 (06:03→17:17)
[2019-06-07 06:37] LABS: Calcium 8.8 mg/dL (8.6-10.3); Magnesium 1.4 mg/dL (1.6-2.6); Potassium 3.3 mEq/L (3.5-5.1)
[2019-06-07 07:58] LABS: Estimated Average Glucose 243 mg/dl
[2019-06-07] MEDS ORDERED: Calcium Acetate 667 MG CAPSULE PO PRN (08:11)
[2019-06-07] MEDS ORDERED: metOLazone 2.5 MG TABLET PO SCH (09:00)
[2019-06-07] MEDS ORDERED: Calcium Acetate 667 MG CAPSULE PO SCH (09:00)
[2019-06-07] MEDS: cefTRIAXone 2,000 MG in 0.9 % Sodium Chloride Mini Bag 100 ML IVPB SCH (09:42)
[2019-06-07] MEDS: Insulin LISPRO 300 UNITS/3 ML VIAL SQ SCH ×4 (09:48→20:46)
[2019-06-07] MEDS: Calcium Acetate 667 MG CAPSULE PO SCH ×3 (09:50→17:17)
[2019-06-07] MEDS: Aspirin Enteric Coated 81 MG Tablet PO SCH (09:50)
[2019-06-07] MEDS: Furosemide 40 MG TABLET PO SCH ×2 (09:53→17:17)
[2019-06-07] MEDS: metOLazone 2.5 MG TABLET PO SCH (09:53)
[2019-06-07] MEDS: Perit. Dialysis with Dex 2.5 % 12,000 ML PERITONEAL ONE ×2 (10:14→18:32)
[2019-06-07] MEDS: Perit. Dialysis with Dex 1.5 % 6,000 ML PERITONEAL ONE ×2 (10:14→18:30)
[2019-06-07 10:37] LABS: RBC,Peritoneal Fluid < 0.002 M/mcL
[2019-06-07 10:39] LABS: Appearance of Peritoneal Fl CLEAR (Clear)
[2019-06-07] MEDS ORDERED: Vancomycin 500 MG in 0.9 % Sodium Chloride Mini Bag 100 ML IVPB ONE (11:32)
[2019-06-07] MEDS ORDERED: Vancomycin 1 EACH in 0.9 % Sodium Chloride 250 ML IVPB PRN (12:00)
[2019-06-07 12:29] LABS: Basophils,Peritoneal Fluid 0 %
[2019-06-07] MEDS ORDERED: traMADol 50 MG TABLET PO PRN (13:21)
[2019-06-07] MEDS: *HR* OxyCODONE Immed Rel 5 MG TABLET PO PRN ×2 (14:26→22:52)
[2019-06-07] MEDS ORDERED: Methyl Salicylate/Menthol 28 GM TUBE TP PRN (16:29)
[2019-06-07] MEDS: Methyl Salicylate/Menthol 57 APPL/57 GM TUBE TP PRN (17:41)
[2019-06-07] MEDS ORDERED: Perit. Dialysis with Dex 2.5 % 6,000 ML PERITONEAL ONE (19:00)
[2019-06-07] MEDS ORDERED: Perit. Dialysis with Dex 1.5 % 6,000 ML PERITONEAL ONE (19:00)
[2019-06-07] MEDS ORDERED: rOPINIRole 0.25 MG TABLET PO ONE (20:04)
[2019-06-07] MEDS: Insulin DETEMIR 100 UNIT/ML X5UNITS SQ SCH (20:44)
[2019-06-07] MEDS: Melatonin 3 MG TABLET PO PRN (20:46)
[2019-06-08] MEDS: Methyl Salicylate/Menthol 57 APPL/57 GM TUBE TP PRN (02:55)
[2019-06-08] MEDS ORDERED: *HR* OxyCODONE Immed Rel 5 MG TABLET PO ONE (03:18)
[2019-06-08] MEDS ORDERED: 0.9 % Sodium Chloride 250 ML IVC ONE (03:44)
[2019-06-08] MEDS ORDERED: 0.9 % Sodium Chloride 250 ML ONE (03:46)
[2019-06-08 04:17] LABS: Basophils # 0.1 K/mcL (0.0-0.2); Basophils % 0.6 %; Eosinophils # 0.3 K/mcL (0.0-0.6); Eosinophils % 2.5 %; Hematocrit 40.1 % (35.3-44.9); Lymphocytes # 1.5 K/mcL (0.6-4.6); Lymphocytes % 13.9 %; Mean Corpuscular HGB Conc 36.7 g/dL (31.6-35.5); Mean Corpuscular Hemoglobin 35.9 pg (28.0-33.3); Mean Platelet Volume 10.2 fL (9.4-12.4); Monocytes # 0.6 K/mcL (0.0-1.3); Monocytes % 5.1 %; Neutrophils # 8.4 K/mcL (1.6-8.9); Platelet Count 219 K/mcL (140-400); Red Blood Count 4.09 M/mcL (3.82-4.97); Red Cell Distribution Width 13.3 % (11.5-14.5); Segmented Neutrophils % 76.9 %
[2019-06-08 04:19] LABS: Hemoglobin 14.7 g/dL (11.5-15.4)
[2019-06-08 04:40] LABS: Calcium 9.2 mg/dL (8.6-10.3); Potassium 3.1 mEq/L (3.5-5.1)
[2019-06-08] MEDS: levETIRAcetam 250 MG TABLET PO SCH ×2 (04:58→17:19)
[2019-06-08 05:08] LABS: Magnesium 1.7 mg/dL (1.6-2.6)
[2019-06-08] MEDS: metOLazone 2.5 MG TABLET PO SCH (08:45)
[2019-06-08] MEDS: Calcium Acetate 667 MG CAPSULE PO SCH ×3 (08:46→17:16)
[2019-06-08] MEDS: Furosemide 40 MG TABLET PO SCH ×2 (08:46→17:16)
[2019-06-08] MEDS: Aspirin Enteric Coated 81 MG Tablet PO SCH (08:46)
[2019-06-08] MEDS: cefTRIAXone 2,000 MG in 0.9 % Sodium Chloride Mini Bag 100 ML IVPB SCH (08:50)
[2019-06-08] MEDS: Insulin LISPRO 300 UNITS/3 ML VIAL SQ SCH ×4 (09:09→20:15)
[2019-06-08] MEDS: *HR* OxyCODONE Immed Rel 5 MG TABLET PO PRN ×2 (12:03→20:09)
[2019-06-08] MEDS ORDERED: Perit. Dialysis with Dex 1.5 % 6,000 ML PERITONEAL ONE (19:00)
[2019-06-08] MEDS ORDERED: Perit. Dialysis with Dex 2.5 % 6,000 ML PERITONEAL ONE (19:00)
[2019-06-08] MEDS: Perit. Dialysis with Dex 1.5 % 6,000 ML PERITONEAL ONE (19:36)
[2019-06-08] MEDS: Melatonin 3 MG TABLET PO PRN (20:11)
[2019-06-08] MEDS: Insulin DETEMIR 100 UNIT/ML X5UNITS SQ SCH (20:14)
[2019-06-09] MEDS: Methyl Salicylate/Menthol 57 APPL/57 GM TUBE TP PRN ×2 (00:50→20:26)
[2019-06-09] MEDS ORDERED: rOPINIRole 0.25 MG TABLET PO ONE (01:37)
[2019-06-09] MEDS: levETIRAcetam 250 MG TABLET PO SCH ×2 (06:15→17:07)
[2019-06-09 07:58] LABS: Basophils # 0.1 K/mcL (0.0-0.2); Basophils % 0.5 %; Calcium 9.4 mg/dL (8.6-10.3); Eosinophils # 0.5 K/mcL (0.0-0.6); Eosinophils % 4.1 %; Hemoglobin 13.7 g/dL (11.5-15.4); Immature Granulocytes % 0.8 % (0-4); Lymphocytes # 1.1 K/mcL (0.6-4.6); Lymphocytes % 9.5 %; Mean Corpuscular HGB Conc 35.1 g/dL (31.6-35.5); Mean Corpuscular Hemoglobin 36.2 pg (28.0-33.3); Mean Corpuscular Volume 103.2 fL (83.0-100.0); Mean Platelet Volume 9.9 fL (9.4-12.4); Monocytes # 0.6 K/mcL (0.0-1.3); Monocytes % 5.7 %; Neutrophils # 8.9 K/mcL (1.6-8.9); Platelet Count 152 K/mcL (140-400); Potassium 3.4 mEq/L (3.5-5.1); Red Blood Count 3.78 M/mcL (3.82-4.97); Red Cell Distribution Width 13.6 % (11.5-14.5); Segmented Neutrophils % 79.4 %; White Blood Count 11.2 K/mcL (4.3-11.1)
[2019-06-09] MEDS: Insulin LISPRO 300 UNITS/3 ML VIAL SQ SCH ×4 (08:12→20:25)
[2019-06-09] MEDS: *HR* OxyCODONE Immed Rel 5 MG TABLET PO PRN ×2 (08:13→15:41)
[2019-06-09] MEDS: Furosemide 40 MG TABLET PO SCH ×2 (08:14→16:38)
[2019-06-09] MEDS: Calcium Acetate 667 MG CAPSULE PO SCH ×3 (08:14→16:39)
[2019-06-09] MEDS: Aspirin Enteric Coated 81 MG Tablet PO SCH (08:14)
[2019-06-09] MEDS: metOLazone 2.5 MG TABLET PO SCH (08:15)
[2019-06-09] MEDS ORDERED: Perit. Dialysis with Dex 2.5 % 6,000 ML PERITONEAL ONE (19:00)
[2019-06-09] MEDS ORDERED: Perit. Dialysis with Dex 1.5 % 6,000 ML PERITONEAL ONE (19:00)
[2019-06-09] MEDS: Melatonin 3 MG TABLET PO PRN (20:25)
[2019-06-09] MEDS: Insulin DETEMIR 100 UNIT/ML X5UNITS SQ SCH (20:26)
[2019-06-09] MEDS: rOPINIRole 0.25 MG TABLET PO PRN (23:13)
[2019-06-10] MEDS: *HR* OxyCODONE Immed Rel 5 MG TABLET PO PRN ×3 (00:56→20:49)
[2019-06-10] MEDS: levETIRAcetam 250 MG TABLET PO SCH ×2 (05:39→16:57)
[2019-06-10 07:55] LABS: Basophils # 0.1 K/mcL (0.0-0.2); Basophils % 0.5 %; Eosinophils # 0.5 K/mcL (0.0-0.6); Eosinophils % 4.8 %; Hematocrit 35.9 % (35.3-44.9); Hemoglobin 13.3 g/dL (11.5-15.4); Immature Granulocytes % 1.3 % (0-4); Lymphocytes # 1.2 K/mcL (0.6-4.6); Lymphocytes % 10.6 %; Mean Corpuscular Hemoglobin 36.7 pg (28.0-33.3); Mean Corpuscular Volume 99.2 fL (83.0-100.0); Mean Platelet Volume 10.4 fL (9.4-12.4); Monocytes # 0.6 K/mcL (0.0-1.3); Monocytes % 5.6 %; Platelet Count 154 K/mcL (140-400); Red Blood Count 3.62 M/mcL (3.82-4.97); Red Cell Distribution Width 13.7 % (11.5-14.5); Segmented Neutrophils % 77.2 %; White Blood Count 10.9 K/mcL (4.3-11.1)
[2019-06-10 08:34] LABS: Neutrophils # 8.4 K/mcL (1.6-8.9)
[2019-06-10 09:49] LABS: Potassium 4.4 mEq/L (3.5-5.1)
[2019-06-10 09:50] LABS: Calcium 9.3 mg/dL (8.6-10.3)
[2019-06-10] MEDS: Insulin LISPRO 300 UNITS/3 ML VIAL SQ SCH ×4 (09:58→21:47)
[2019-06-10] MEDS: metOLazone 2.5 MG TABLET PO SCH (09:58)
[2019-06-10] MEDS: Aspirin Enteric Coated 81 MG Tablet PO SCH (09:58)
[2019-06-10] MEDS: Calcium Acetate 667 MG CAPSULE PO SCH ×3 (09:58→16:57)
[2019-06-10] MEDS: Furosemide 40 MG TABLET PO SCH ×2 (09:58→16:57)
[2019-06-10] MEDS: Gentamicin Oint 15 GM TUBE TP SCH (10:19)
[2019-06-10] MEDS ORDERED: Aminoglycoside Consult 1 EACH MC ONE (12:20)
[2019-06-10] MEDS: Perit. Dialysis with Dex 1.5 % 6,000 ML PERITONEAL ONE ×2 (18:35→18:36)
[2019-06-10] MEDS ORDERED: Perit. Dialysis with Dex 2.5 % 6,000 ML PERITONEAL ONE (19:00)
[2019-06-10] MEDS: Insulin DETEMIR 100 UNIT/ML X5UNITS SQ SCH (20:50)
[2019-06-10] MEDS: rOPINIRole 0.25 MG TABLET PO PRN (20:57)
[2019-06-11] MEDS: levETIRAcetam 250 MG TABLET PO SCH (06:11)
[2019-06-11 07:33] VITALS: BP 124/75
[2019-06-11] MEDS: metOLazone 2.5 MG TABLET PO SCH (09:35)
[2019-06-11] MEDS: *HR* OxyCODONE Immed Rel 5 MG TABLET PO PRN (09:36)
[2019-06-11] MEDS: Furosemide 40 MG TABLET PO SCH (09:37)
[2019-06-11] MEDS: Calcium Acetate 667 MG CAPSULE PO SCH (09:37)
[2019-06-11] MEDS: Aspirin Enteric Coated 81 MG Tablet PO SCH (09:37)
[2019-06-11] MEDS: Insulin LISPRO 300 UNITS/3 ML VIAL SQ SCH (09:37)
[2019-06-11] MEDS: Gentamicin Oint 15 GM TUBE TP SCH (09:58)
[2019-06-11 11:25] LABS: Calcium 9.5 mg/dL (8.6-10.3)
[2019-06-11 11:31] LABS: Basophils # 0.1 K/mcL (0.0-0.2); Basophils % 0.4 %; Eosinophils # 0.5 K/mcL (0.0-0.6); Hematocrit 39.4 % (35.3-44.9); Hemoglobin 13.4 g/dL (11.5-15.4); Immature Granulocytes % 0.7 % (0-4); Lymphocytes % 8.1 %; Mean Corpuscular Hemoglobin 36.2 pg (28.0-33.3); Mean Platelet Volume 10.3 fL (9.4-12.4); Monocytes # 0.7 K/mcL (0.0-1.3); Monocytes % 5.6 %; Neutrophils # 9.8 K/mcL (1.6-8.9); Platelet Count 158 K/mcL (140-400); Red Cell Distribution Width 13.7 % (11.5-14.5); Segmented Neutrophils % 81.2 %; White Blood Count 12.1 K/mcL (4.3-11.1)
[2019-06-11 11:49] LABS: Mean Corpuscular Volume 106.5 fL (83.0-100.0)
== END 2019-06-11 12:21 | disposition home health service (06) | DRG 689 ==
LOC: 2ANU → SUATTDRO 11:43
PROVIDERS: ADMIT Internal Medicine; ATTEND Internal Medicine

== ENCOUNTER 2019-07-10 23:54 | Inpatient (IN) ==
[2019-07-11] MEDS ORDERED: Naloxone 0.4 MG/ML INJ IVP PRN (02:49)
[2019-07-11 02:57] LABS: Basophils % 0.3 %; Eosinophils # 0.3 K/mcL (0.0-0.6); Eosinophils % 2.5 %; Hematocrit 30.5 % (35.3-44.9); Hemoglobin 10.8 g/dL (11.5-15.4); Lymphocytes # 0.9 K/mcL (0.6-4.6); Lymphocytes % 8.5 %; Mean Corpuscular HGB Conc 35.4 g/dL (31.6-35.5); Mean Corpuscular Hemoglobin 35.6 pg (28.0-33.3); Mean Corpuscular Volume 100.7 fL (83.0-100.0); Mean Platelet Volume 10.4 fL (9.4-12.4); Monocytes # 0.5 K/mcL (0.0-1.3); Monocytes % 4.7 %; Neutrophils # 8.7 K/mcL (1.6-8.9); Platelet Count 136 K/mcL (140-400); Red Blood Count 3.03 M/mcL (3.82-4.97); White Blood Count 10.5 K/mcL (4.3-11.1)
[2019-07-11 03:13] LABS: Albumin 2.9 g/dL (3.5-5.7); Albumin/Globulin Ratio 0.9 (1.1-2.2); Bilirubin,Total 0.3 mg/dL (0.3-1.0); Calcium 8.4 mg/dL (8.6-10.3); Globulin 3.3 g/dL (2.4-3.5); Magnesium 1.9 mg/dL (1.6-2.6); Phosphorous 3.3 mg/dL (2.7-4.5); Potassium 2.6 mEq/L (3.5-5.1); Total Protein 6.2 g/dL (6.4-8.9); Troponin I 0.08 ng/mL (< 0.04)
[2019-07-11] MEDS ORDERED: Potassium Chloride Elixir 20 MEQ/15 ML UDC PO ONE ×2 (03:20→05:30)
[2019-07-11] MEDS ORDERED: Potassium Chloride 40 MEQ, Lidocaine 1% 2 ML in 0.9 % Sodium Chloride 500 ML IVPB ONE (03:22)
[2019-07-11] MEDS ORDERED: Dextrose Gel 15 GM/37.5 ML TUBE PO PRN ×2 (05:03)
[2019-07-11] MEDS ORDERED: D5% in Water 1,000 ML IVC PRN (05:03)
[2019-07-11] MEDS ORDERED: *HR* Dextrose 50 % in Water (Syg) 50 ML SYRINGE IVP PRN (05:03)
[2019-07-11] MEDS: levETIRAcetam 250 MG TABLET PO SCH ×2 (05:29→17:58)
[2019-07-11] MEDS: Insulin LISPRO 300 UNITS/3 ML VIAL SQ SCH ×4 (07:46→22:51)
[2019-07-11] MEDS: Potassium Chloride Elixir 20 MEQ/15 ML UDC PO SCH (07:47)
[2019-07-11] MEDS: Calcium Acetate 667 MG CAPSULE PO SCH ×3 (07:47→17:58)
[2019-07-11] MEDS: Aspirin Enteric Coated 81 MG Tablet PO SCH (07:47)
[2019-07-11] MEDS: 0.9 % Sodium Chloride 1,000 ML IVC SCH ×2 (10:33→21:04)
[2019-07-11] MEDS: Piperacillin/Tazobactam 3.375 GM in 0.9 % Sodium Chloride Mini Bag 100 ML IVPB SCH ×2 (10:33→17:59)
[2019-07-11 11:14] LABS: Bilirubin,Urine Moderate (Negative); Blood,Urine Negative (Negative); Clarity,Urine Clear (Clear); Color,Urine Yellow (Yellow); Glucose,Urine (UA) Normal (Normal); Ketones,Urine 15 mg/dL (Negative); Leukocyte Esterase,Urine Negative (Negative); Nitrite,Urine Negative (Negative); PH,Urine 5.5 pH Units (5.0-8.0); Protein,Urine 30 mg/dL (Neg-Trace); Specific Gravity,Urine 1.025 (1.010-1.025); Urobilinogen,Urine Normal (Normal)
[2019-07-11 11:39] LABS: Bacteria,Urine None Seen per hpf (None-Few); Hyaline Casts,Urine Few per lpf (None-Few); Squamous Epithelial Cell,Urine Many per lpf (None-Few); WBC,Urine 0-3 per hpf (0-3)
[2019-07-11] MEDS ORDERED: Melatonin 3 MG TABLET PO PRN (12:17)
[2019-07-11] MEDS ORDERED: Methyl Salicylate/Menthol 57 APPL/57 GM TUBE TP PRN (12:17)
[2019-07-11 14:02] LABS: Hepatitis B Surface Antibody < 3.10 mIU/mL
[2019-07-11 14:10] LABS: Potassium 3.5 mEq/L (3.5-5.1); Troponin I 0.08 ng/mL (< 0.04)
[2019-07-11 14:13] LABS: Hepatitis B Surface Antigen Nonreactive (Nonreactive)
[2019-07-11] MEDS: *HR* Heparin 5,000 UNIT/ML VIAL SQ SCH (18:15)
[2019-07-11] MEDS: Perit. Dialysis with Dex 1.5 % 12,000 ML PERITONEAL ONE (20:12)
[2019-07-12 04:38] LABS: Basophils % 0.5 %; Eosinophils # 0.3 K/mcL (0.0-0.6); Eosinophils % 4.3 %; Hematocrit 27.8 % (35.3-44.9); Hemoglobin 9.3 g/dL (11.5-15.4); Immature Granulocytes % 1.5 % (0-4); Lymphocytes # 0.6 K/mcL (0.6-4.6); Lymphocytes % 7.2 %; Mean Corpuscular HGB Conc 33.5 g/dL (31.6-35.5); Mean Corpuscular Hemoglobin 35.4 pg (28.0-33.3); Mean Corpuscular Volume 105.7 fL (83.0-100.0); Mean Platelet Volume 10.1 fL (9.4-12.4); Monocytes # 0.4 K/mcL (0.0-1.3); Monocytes % 5.2 %; Neutrophils # 6.5 K/mcL (1.6-8.9); Nucleated Red Blood Cells 0.3 /100 WBC (0); Platelet Count 115 K/mcL (140-400); Red Blood Count 2.63 M/mcL (3.82-4.97); Red Cell Distribution Width 14.2 % (11.5-14.5); Segmented Neutrophils % 81.3 %
[2019-07-12 04:59] LABS: Calcium 7.9 mg/dL (8.6-10.3); Magnesium 1.5 mg/dL (1.6-2.6); Potassium 3.4 mEq/L (3.5-5.1)
[2019-07-12 05:11] LABS: Troponin I 0.08 ng/mL (< 0.04)
[2019-07-12] MEDS: levETIRAcetam 250 MG TABLET PO SCH ×2 (05:40→17:03)
[2019-07-12] MEDS: *HR* Heparin 5,000 UNIT/ML VIAL SQ SCH ×2 (05:43→17:03)
[2019-07-12] MEDS: Piperacillin/Tazobactam 3.375 GM in 0.9 % Sodium Chloride Mini Bag 100 ML IVPB SCH ×2 (05:44→17:03)
[2019-07-12] MEDS: Aspirin Enteric Coated 81 MG Tablet PO SCH (09:33)
[2019-07-12] MEDS: Insulin LISPRO 300 UNITS/3 ML VIAL SQ SCH ×4 (09:33→20:31)
[2019-07-12] MEDS: Calcium Acetate 667 MG CAPSULE PO SCH ×3 (09:33→17:03)
[2019-07-12] MEDS: Potassium Chloride Elixir 20 MEQ/15 ML UDC PO SCH (09:36)
[2019-07-12] MEDS ORDERED: Isovue-370 500 ML BOTTLE IVP ONE (10:21)
[2019-07-12] MEDS: 0.9 % Sodium Chloride 1,000 ML IVC SCH (10:34)
[2019-07-12] MEDS: predniSONE 20 MG TABLET PO SCH (17:02)
[2019-07-12] MEDS: Perit. Dialysis with Dex 1.5 % 12,000 ML PERITONEAL ONE ×2 (18:53→19:39)
[2019-07-13 05:07] LABS: Calcium 8.6 mg/dL (8.6-10.3); Potassium 4.5 mEq/L (3.5-5.1)
[2019-07-13] MEDS: predniSONE 20 MG TABLET PO SCH ×2 (06:30)
[2019-07-13] MEDS: levETIRAcetam 250 MG TABLET PO SCH ×2 (06:30→17:14)
[2019-07-13] MEDS: Piperacillin/Tazobactam 3.375 GM in 0.9 % Sodium Chloride Mini Bag 100 ML IVPB SCH (06:31)
[2019-07-13] MEDS: *HR* Heparin 5,000 UNIT/ML VIAL SQ SCH ×3 (06:31→18:22)
[2019-07-13] MEDS: Calcium Acetate 667 MG CAPSULE PO SCH ×3 (09:07→17:14)
[2019-07-13] MEDS: Aspirin Enteric Coated 81 MG Tablet PO SCH (09:07)
[2019-07-13] MEDS: Potassium Chloride Elixir 20 MEQ/15 ML UDC PO SCH (09:07)
[2019-07-13] MEDS: Insulin LISPRO 300 UNITS/3 ML VIAL SQ SCH ×4 (09:08→21:20)
[2019-07-13] MEDS ORDERED: 0.9 % Sodium Chloride 500 ML IVC ONE (11:45)
[2019-07-13 17:36] LABS: Basophils % 0.1 %; Hematocrit 24.1 % (35.3-44.9); Hemoglobin 8.5 g/dL (11.5-15.4); Immature Granulocytes % 1.4 % (0-4); Lymphocytes # 0.4 K/mcL (0.6-4.6); Lymphocytes % 3.8 %; Mean Corpuscular HGB Conc 35.3 g/dL (31.6-35.5); Mean Corpuscular Hemoglobin 36.2 pg (28.0-33.3); Mean Corpuscular Volume 102.6 fL (83.0-100.0); Mean Platelet Volume 10.5 fL (9.4-12.4); Monocytes # 0.3 K/mcL (0.0-1.3); Monocytes % 3.6 %; Neutrophils # 8.6 K/mcL (1.6-8.9); Platelet Count 126 K/mcL (140-400); Red Blood Count 2.35 M/mcL (3.82-4.97); Red Cell Distribution Width 14.4 % (11.5-14.5); Segmented Neutrophils % 91.1 %; White Blood Count 9.5 K/mcL (4.3-11.1)
[2019-07-13] MEDS ORDERED: Perit. Dialysis with Dex 1.5 % 12,000 ML PERITONEAL ONE (19:00)
[2019-07-13] MEDS: Perit. Dialysis with Dex 1.5 % 12,000 ML PERITONEAL ONE (20:04)
[2019-07-13] MEDS: Mirtazapine 15 MG TABLET PO SCH (20:42)
[2019-07-13] MEDS ORDERED: Insulin DETEMIR 100 UNIT/ML X5UNITS SQ SCH ×2 (21:00)
[2019-07-13] MEDS: Insulin DETEMIR 100 UNIT/ML X5UNITS SQ SCH (21:21)
[2019-07-14 05:22] LABS: Basophils % 0.1 %; Hematocrit 26.3 % (35.3-44.9); Hemoglobin 8.7 g/dL (11.5-15.4); Immature Granulocytes % 1.2 % (0-4); Lymphocytes # 0.6 K/mcL (0.6-4.6); Mean Corpuscular HGB Conc 33.1 g/dL (31.6-35.5); Mean Corpuscular Hemoglobin 34.9 pg (28.0-33.3); Mean Corpuscular Volume 105.6 fL (83.0-100.0); Mean Platelet Volume 10.2 fL (9.4-12.4); Monocytes # 0.5 K/mcL (0.0-1.3); Monocytes % 3.6 %; Neutrophils # 12.5 K/mcL (1.6-8.9); Platelet Count 154 K/mcL (140-400); Red Blood Count 2.49 M/mcL (3.82-4.97); Red Cell Distribution Width 14.3 % (11.5-14.5); Segmented Neutrophils % 91.1 %; White Blood Count 13.8 K/mcL (4.3-11.1)
[2019-07-14] MEDS: levETIRAcetam 250 MG TABLET PO SCH ×2 (06:09→17:05)
[2019-07-14] MEDS: *HR* Heparin 5,000 UNIT/ML VIAL SQ SCH ×2 (06:09→17:45)
[2019-07-14] MEDS: Insulin LISPRO 300 UNITS/3 ML VIAL SQ SCH ×4 (09:14→22:10)
[2019-07-14] MEDS: Potassium Chloride Elixir 20 MEQ/15 ML UDC PO SCH (09:15)
[2019-07-14] MEDS: Calcium Acetate 667 MG CAPSULE PO SCH ×3 (09:16→16:45)
[2019-07-14] MEDS: Aspirin Enteric Coated 81 MG Tablet PO SCH (09:16)
[2019-07-14] MEDS ORDERED: Perit. Dialysis with Dex 1.5 % 12,000 ML PERITONEAL ONE (19:00)
[2019-07-14] MEDS: Gentamicin Oint 15 GM TUBE TP SCH (20:40)
[2019-07-14] MEDS: Insulin DETEMIR 100 UNIT/ML X5UNITS SQ SCH (22:09)
[2019-07-14] MEDS: Mirtazapine 15 MG TABLET PO SCH (22:09)
[2019-07-15] MEDS: levETIRAcetam 250 MG TABLET PO SCH ×2 (06:22→17:20)
[2019-07-15] MEDS: *HR* Heparin 5,000 UNIT/ML VIAL SQ SCH ×2 (06:22→17:20)
[2019-07-15 06:28] LABS: Basophils % 0.2 %; Eosinophils # 0.2 K/mcL (0.0-0.6); Hematocrit 25.2 % (35.3-44.9); Hemoglobin 8.8 g/dL (11.5-15.4); Immature Granulocytes % 1.8 % (0-4); Lymphocytes # 0.8 K/mcL (0.6-4.6); Lymphocytes % 8.1 %; Mean Corpuscular HGB Conc 34.9 g/dL (31.6-35.5); Mean Corpuscular Hemoglobin 36.1 pg (28.0-33.3); Mean Corpuscular Volume 103.3 fL (83.0-100.0); Mean Platelet Volume 9.6 fL (9.4-12.4); Monocytes # 0.5 K/mcL (0.0-1.3); Monocytes % 5.7 %; Neutrophils # 7.8 K/mcL (1.6-8.9); Platelet Count 148 K/mcL (140-400); Red Blood Count 2.44 M/mcL (3.82-4.97); Red Cell Distribution Width 14.5 % (11.5-14.5); Segmented Neutrophils % 82.2 %; White Blood Count 9.5 K/mcL (4.3-11.1)
[2019-07-15 06:49] LABS: Calcium 8.2 mg/dL (8.6-10.3); Potassium 4.1 mEq/L (3.5-5.1)
[2019-07-15] MEDS: Insulin LISPRO 300 UNITS/3 ML VIAL SQ SCH ×4 (09:00→20:54)
[2019-07-15] MEDS: Calcium Acetate 667 MG CAPSULE PO SCH ×3 (09:00→17:20)
[2019-07-15] MEDS: Potassium Chloride Elixir 20 MEQ/15 ML UDC PO SCH (09:00)
[2019-07-15] MEDS: Aspirin Enteric Coated 81 MG Tablet PO SCH (09:00)
[2019-07-15] MEDS ORDERED: Perit. Dialysis with Dex 1.5 % 12,000 ML PERITONEAL ONE (19:00)
[2019-07-15] MEDS: Gentamicin Oint 15 GM TUBE TP SCH (19:51)
[2019-07-15] MEDS: Mirtazapine 15 MG TABLET PO SCH (20:53)
[2019-07-15] MEDS: Insulin DETEMIR 100 UNIT/ML X5UNITS SQ SCH (20:54)
[2019-07-16 04:08] LABS: Calcium 7.9 mg/dL (8.6-10.3); Potassium 4.3 mEq/L (3.5-5.1)
[2019-07-16] MEDS: levETIRAcetam 250 MG TABLET PO SCH ×2 (05:38→17:35)
[2019-07-16] MEDS: *HR* Heparin 5,000 UNIT/ML VIAL SQ SCH ×2 (05:38→17:34)
[2019-07-16] MEDS: Insulin LISPRO 300 UNITS/3 ML VIAL SQ SCH ×4 (09:52→21:35)
[2019-07-16] MEDS: Potassium Chloride Elixir 20 MEQ/15 ML UDC PO SCH (10:02)
[2019-07-16] MEDS: Calcium Acetate 667 MG CAPSULE PO SCH ×3 (10:03→17:35)
[2019-07-16] MEDS: Aspirin Enteric Coated 81 MG Tablet PO SCH (10:03)
[2019-07-16] MEDS: Perit. Dialysis with Dex 1.5 % 12,000 ML PERITONEAL ONE (18:54)
[2019-07-16] MEDS ORDERED: Perit. Dialysis with Dex 1.5 % 12,000 ML PERITONEAL ONE (19:00)
[2019-07-16] MEDS: Mirtazapine 15 MG TABLET PO SCH (21:35)
[2019-07-16] MEDS: Insulin DETEMIR 100 UNIT/ML X5UNITS SQ SCH (21:36)
[2019-07-17] MEDS: *HR* Heparin 5,000 UNIT/ML VIAL SQ SCH (06:09)
[2019-07-17] MEDS: levETIRAcetam 250 MG TABLET PO SCH (06:09)
[2019-07-17 06:19] LABS: Calcium 7.9 mg/dL (8.6-10.3)
[2019-07-17 07:30] VITALS: BP 124/53
[2019-07-17] MEDS: Potassium Chloride Elixir 20 MEQ/15 ML UDC PO SCH (09:35)
[2019-07-17] MEDS: Insulin LISPRO 300 UNITS/3 ML VIAL SQ SCH (09:37)
[2019-07-17] MEDS: Aspirin Enteric Coated 81 MG Tablet PO SCH (09:38)
[2019-07-17] MEDS: Calcium Acetate 667 MG CAPSULE PO SCH (09:38)
== END 2019-07-17 17:08 | DRG 871 ==
LOC: 2NENU → SUATTDRO 07-12 13:29
PROVIDERS: ADMIT Internal Medicine; ATTEND Internal Medicine

== ENCOUNTER 2019-09-02 16:10 | Inpatient (IN) ==
[2019-09-02] MEDS ORDERED: cefTRIAXone 1,000 MG in Water for inj. (sterile) 10 ML IVP ONE (19:16)
[2019-09-02] MEDS ORDERED: 0.9 % Sodium Chloride 1,000 ML IVC SCH (19:30)
[2019-09-02] MEDS ORDERED: Naloxone 0.4 MG/ML INJ IVP PRN (20:05)
[2019-09-02] MEDS ORDERED: Dextrose Gel 15 GM/37.5 ML TUBE PO PRN ×2 (20:08)
[2019-09-02] MEDS ORDERED: D5% in Water 1,000 ML IVC PRN (20:08)
[2019-09-02] MEDS ORDERED: *HR* Dextrose 50 % in Water (Syg) 50 ML SYRINGE IVP PRN (20:08)
[2019-09-02] MEDS ORDERED: Melatonin 3 MG TABLET PO PRN (20:11)
[2019-09-02] MEDS ORDERED: rOPINIRole 0.25 MG TABLET PO PRN (20:11)
[2019-09-02 20:15] LABS: Adenovirus Not Detected (Not Detect); Bordetella Pertussis Not Detected (Not Detect); Chlamydophila pneumoniae Not Detected (Not Detect); Coronavirus 229E Not Detected (Not Detect); Coronavirus HKU1 Not Detected (Not Detect); Coronavirus NL63 Not Detected (Not Detect); Coronavirus OC43 Not Detected (Not Detect); Human Metapneumovirus Not Detected (Not Detect); Human Rhinovirus/Enterovirus Not Detected (Not Detect); Influenza A Subtype 2009 H1 Not Detected (Not Detect); Influenza B Not Detected (Not Detect); Mycoplasma pneumoniae Not Detected (Not Detect); Parainfluenza Virus 1 Not Detected (Not Detect); Parainfluenza Virus 2 Not Detected (Not Detect); Parainfluenza Virus 3 Not Detected (Not Detect); Parainfluenza Virus 4 Not Detected (Not Detect); Respiratory Syncytial Virus Not Detected (Not Detect)
[2019-09-02] MEDS: Pantoprazole 40 MG VIAL IVP SCH (21:30)
[2019-09-02] MEDS: Insulin LISPRO 300 UNITS/3 ML VIAL SQ SCH (21:38)
[2019-09-02 22:34] LABS: Basophils % 0.1 %; Eosinophils # 0.1 K/mcL (0.0-0.6); Eosinophils % 0.7 %; Hematocrit 18.7 % (35.3-44.9); Hemoglobin 6.3 g/dL (11.5-15.4); Immature Granulocytes % 0.8 % (0-4); Lymphocytes # 0.6 K/mcL (0.6-4.6); Lymphocytes % 6.5 %; Mean Corpuscular HGB Conc 33.7 g/dL (31.6-35.5); Mean Corpuscular Hemoglobin 32.3 pg (28.0-33.3); Mean Corpuscular Volume 95.9 fL (83.0-100.0); Mean Platelet Volume 9.1 fL (9.4-12.4); Monocytes # 0.4 K/mcL (0.0-1.3); Monocytes % 4.1 %; Neutrophils # 7.4 K/mcL (1.6-8.9); Nucleated Red Blood Cells 0.2 /100 WBC (0); Platelet Count 246 K/mcL (140-400); Red Blood Count 1.95 M/mcL (3.82-4.97); Red Cell Distribution Width 16.6 % (11.5-14.5); Segmented Neutrophils % 87.8 %; White Blood Count 8.5 K/mcL (4.3-11.1)
[2019-09-02 22:38] LABS: INR 1.5; Prothrombin Time 17.5 Seconds (9.4-12.1)
[2019-09-02 22:54] LABS: Albumin 2.2 g/dL (3.5-5.7); Albumin/Globulin Ratio 0.8 (1.1-2.2); Bilirubin,Total 0.4 mg/dL (0.3-1.0); Calcium 7.4 mg/dL (8.6-10.3); Globulin 2.7 g/dL (2.4-3.5); Magnesium 1.3 mg/dL (1.6-2.6); Phosphorous 3.6 mg/dL (2.7-4.5); Potassium 2.8 mEq/L (3.5-5.1); Total Protein 4.9 g/dL (6.4-8.9)
[2019-09-02] MEDS ORDERED: 0.9 % Sodium Chloride 1,000 ML IV ONE (22:56)
[2019-09-02] MEDS ORDERED: MAGNESIUM SULFATE IVPB ONE (22:57)
[2019-09-02] MEDS ORDERED: SODIUM CHLORIDE 0.9% IVPB ONE (22:57)
[2019-09-02] MEDS ORDERED: Magnesium Sulfate 3 GM in 0.9 % Sodium Chloride 100 ML IVPB ONE (23:15)
[2019-09-02] MEDS ORDERED: 0.9 % Sodium Chloride 250 ML ONE (23:23)
[2019-09-02 23:24] LABS: Estimated Average Glucose 180 mg/dl
[2019-09-02] MEDS ORDERED: Vancomycin (wt based) 1,000 MG VIAL IVPB SCH (23:45)
[2019-09-02 23:56] LABS: VBG HCO3 13 mEq/L (21-27); VBG PCO2 24 mmHg (41-51); VBG PH 7.35 pH Units (7.32-7.42); VBG PO2 212 mmHg (25-50)
[2019-09-03] MEDS: Insulin LISPRO 300 UNITS/3 ML VIAL SQ SCH ×5 (00:06→23:51)
[2019-09-03] MEDS: MetroNIDAZOLE 500 MG/100 ML 500 MG/100 ML BAG IVPB SCH ×3 (00:08→21:24)
[2019-09-03] MEDS ORDERED: 0.9 % Sodium Chloride 500 ML IVC SCH (04:00)
[2019-09-03] MEDS ORDERED: levoFLOXacin 750 MG/150 ML 750 MG/150 ML BAG IVPB ONE (06:00)
[2019-09-03] MEDS: Pantoprazole 40 MG VIAL IVP SCH (06:09)
[2019-09-03] MEDS ORDERED: Ipratropium/Albuterol Neb 3 ML IH ONE (06:25)
[2019-09-03 06:56] LABS: Basophils % 0.2 %; Eosinophils # 0.1 K/mcL (0.0-0.6); Eosinophils % 1.3 %; Hematocrit 26.4 % (35.3-44.9); Immature Granulocytes % 0.9 % (0-4); Lymphocytes # 0.6 K/mcL (0.6-4.6); Lymphocytes % 5.7 %; Mean Corpuscular HGB Conc 33.3 g/dL (31.6-35.5); Mean Corpuscular Hemoglobin 31.8 pg (28.0-33.3); Mean Corpuscular Volume 95.3 fL (83.0-100.0); Mean Platelet Volume 9.4 fL (9.4-12.4); Monocytes # 0.7 K/mcL (0.0-1.3); Monocytes % 6.6 %; Neutrophils # 8.4 K/mcL (1.6-8.9); Nucleated Red Blood Cells 0.3 /100 WBC (0); Platelet Count 232 K/mcL (140-400); Red Blood Count 2.77 M/mcL (3.82-4.97); Red Cell Distribution Width 17.9 % (11.5-14.5); Segmented Neutrophils % 85.3 %; White Blood Count 9.8 K/mcL (4.3-11.1)
[2019-09-03 06:57] LABS: Hemoglobin 8.8 g/dL (11.5-15.4)
[2019-09-03 07:47] LABS: BUN/Creatinine Ratio 11 (6-26); Blood Urea Nitrogen 47 mg/dL (8-23); Calcium 7.5 mg/dL (8.6-10.3); Carbon Dioxide 20 mEq/L (23-29); Chloride 101 mEq/L (98-107); Glucose 132 mg/dL (70-105); Osmolality,Calculated 292 (280-300); Potassium 3.6 mEq/L (3.5-5.1); Sodium 134 mEq/L (136-145); Thyroid Stimulating Hormone 0.184 mcIU/mL (0.340-5.600); Troponin I 0.04 ng/mL (< 0.04); Vancomycin,Random < 2 mcg/mL; eGFR For African Americans 13 (> 60); eGFR For Non-African Americans 10 (> 60)
[2019-09-03] MEDS ORDERED: metOLazone 2.5 MG TABLET PO SCH (09:00)
[2019-09-03] MEDS ORDERED: amLODIPine 5 MG TABLET PO SCH (09:00)
[2019-09-03] MEDS ORDERED: Aspirin Enteric Coated 81 MG Tablet PO SCH (09:00)
[2019-09-03] MEDS ORDERED: Metoprolol XL (24 HR) Succ 50 MG TAB.ER.24H PO SCH ×2 (09:00)
[2019-09-03] MEDS ORDERED: Perit. Dialysis with Dex 1.5 % 2,000 ML PERITONEAL ONE (10:43)
[2019-09-03] MEDS ORDERED: *HR* LORazepam 2 MG/ML VIAL IVP PRN ×2 (13:46→16:42)
[2019-09-03] MEDS ORDERED: Gentamicin Oint 15 GM TUBE TP SCH ×2 (15:42→15:45)
[2019-09-03] MEDS ORDERED: Naloxone 0.4 MG/ML INJ IVP PRN (16:42)
[2019-09-03] MEDS ORDERED: D5% in Water 1,000 ML IVC PRN (16:42)
[2019-09-03] MEDS ORDERED: *HR* Dextrose 50 % in Water (Syg) 50 ML SYRINGE IVP PRN (16:42)
[2019-09-03] MEDS ORDERED: rOPINIRole 0.25 MG TABLET PO PRN (16:42)
[2019-09-03] MEDS ORDERED: Dextrose Gel 15 GM/37.5 ML TUBE PO PRN ×2 (16:42)
[2019-09-03 18:51] LABS: Hematocrit 25.9 % (35.3-44.9); Hemoglobin 8.7 g/dL (11.5-15.4)
[2019-09-03] MEDS ORDERED: Perit. Dialysis with Dex 2.5 % 12,000 ML PERITONEAL ONE ×2 (19:00→21:00)
[2019-09-03 20:36] LABS: Hepatitis B Surface Antigen Nonreactive (Nonreactive)
[2019-09-03] MEDS: Gentamicin Oint 15 GM TUBE TP SCH (22:03)
[2019-09-03 22:06] LABS: Bilirubin,Urine Moderate (Negative); Blood,Urine Moderate (Negative); Clarity,Urine Turbid (Clear); Color,Urine Dark Yellow (Yellow); Glucose,Urine (UA) Normal (Normal); Ketones,Urine Trace mg/dL (Negative); Leukocyte Esterase,Urine Large (Negative); Nitrite,Urine Negative (Negative); Protein,Urine Trace mg/dL (Neg-Trace); Specific Gravity,Urine 1.024 (1.010-1.025); Urobilinogen,Urine Normal (Normal)
[2019-09-03 22:10] LABS: Bacteria,Urine Few per hpf (None-Few); RBC,Urine 15-30 per hpf (0-3); Squamous Epithelial Cell,Urine Many per lpf (None-Few); WBC,Urine TNTC per hpf (0-3)
[2019-09-03 22:24] LABS: Yeast,Urine Moderate per hpf (None Seen)
[2019-09-03 22:27] LABS: Appearance of Peritoneal Fl CLOUDY (Clear)
[2019-09-03 22:29] LABS: Basophils,Peritoneal Fluid 0 %; Eosinophils,Peritoneal Fluid 0 %
[2019-09-03] MEDS: Nystatin Cream 15 GM TUBE TP SCH (22:38)
[2019-09-04 03:45] LABS: Hepatitis B Surface Antibody 12.45 mIU/mL
[2019-09-04 05:32] LABS: INR 1.5; Prothrombin Time 17.4 Seconds (9.4-12.1)
[2019-09-04 05:35] LABS: Activated Partial Thrombo Time 29.9 Seconds (26.0-36.0)
[2019-09-04 05:51] LABS: Albumin 2.2 g/dL (3.5-5.7); Albumin/Globulin Ratio 0.7 (1.1-2.2); Bilirubin,Total 0.4 mg/dL (0.3-1.0); Magnesium 1.9 mg/dL (1.6-2.6); Potassium 2.9 mEq/L (3.5-5.1); Total Protein 5.2 g/dL (6.4-8.9)
[2019-09-04] MEDS: MetroNIDAZOLE 500 MG/100 ML 500 MG/100 ML BAG IVPB SCH ×4 (06:01→21:32)
[2019-09-04] MEDS: Insulin LISPRO 300 UNITS/3 ML VIAL SQ SCH ×3 (06:02→16:30)
[2019-09-04] MEDS ORDERED: Calcium Gluconate 1gm/50mL 1 GM/50 ML BAG IVPB PRN (06:45)
[2019-09-04] MEDS ORDERED: Potassium Phosphate 44 MEQ in 0.9 % Sodium Chloride 250 ML IVPB PRN (06:45)
[2019-09-04] MEDS: Aspirin Enteric Coated 81 MG Tablet PO SCH (07:35)
[2019-09-04] MEDS: levETIRAcetam 250 MG TABLET PO SCH (07:35)
[2019-09-04 07:39] LABS: Basophils % 0.1 %; Eosinophils # 0.2 K/mcL (0.0-0.6); Eosinophils % 2.8 %; Hematocrit 25.3 % (35.3-44.9); Hemoglobin 8.6 g/dL (11.5-15.4); Immature Granulocytes % 0.7 % (0-4); Lymphocytes # 0.5 K/mcL (0.6-4.6); Mean Corpuscular Hemoglobin 31.7 pg (28.0-33.3); Mean Corpuscular Volume 93.4 fL (83.0-100.0); Mean Platelet Volume 9.3 fL (9.4-12.4); Monocytes # 0.4 K/mcL (0.0-1.3); Monocytes % 4.7 %; Nucleated Red Blood Cells 0.2 /100 WBC (0); Platelet Count 217 K/mcL (140-400); Red Blood Count 2.71 M/mcL (3.82-4.97); Red Cell Distribution Width 18.3 % (11.5-14.5); Segmented Neutrophils % 85.7 %; White Blood Count 8.2 K/mcL (4.3-11.1)
[2019-09-04] MEDS: Gentamicin Oint 15 GM TUBE TP SCH (07:39)
[2019-09-04] MEDS: Nystatin Cream 15 GM TUBE TP SCH ×3 (07:39→21:35)
[2019-09-04] MEDS ORDERED: levETIRAcetam 250 MG TABLET PO SCH (09:00)
[2019-09-04] MEDS ORDERED: Metoprolol XL (24 HR) Succ 50 MG TAB.ER.24H PO SCH (09:00)
[2019-09-04] MEDS: *HR* Heparin 5,000 UNIT/ML VIAL SQ SCH (16:29)
[2019-09-04] MEDS ORDERED: Perit. Dialysis with Dex 1.5 % 12,000 ML PERITONEAL ONE (19:00)
[2019-09-04] MEDS ORDERED: *HR* Heparin 5,000 UNIT/ML VIAL SQ SCH (21:00)
[2019-09-05] MEDS ORDERED: Menthol 9.1 MG LOZENGE PO PRN (00:11)
[2019-09-05] MEDS: Insulin LISPRO 300 UNITS/3 ML VIAL SQ SCH ×5 (01:05→23:49)
[2019-09-05] MEDS: Levalbuterol Neb 1.25 MG/3 ML IH SCH ×2 (04:04→10:54)
[2019-09-05 04:12] LABS: Basophils % 0.3 %; Eosinophils # 0.3 K/mcL (0.0-0.6); Eosinophils % 3.7 %; Hematocrit 26.6 % (35.3-44.9); Immature Granulocytes % 0.8 % (0-4); Lymphocytes # 0.5 K/mcL (0.6-4.6); Lymphocytes % 5.9 %; Mean Corpuscular HGB Conc 33.8 g/dL (31.6-35.5); Mean Corpuscular Hemoglobin 30.7 pg (28.0-33.3); Mean Corpuscular Volume 90.8 fL (83.0-100.0); Mean Platelet Volume 9.4 fL (9.4-12.4); Monocytes # 0.5 K/mcL (0.0-1.3); Monocytes % 4.9 %; Neutrophils # 7.8 K/mcL (1.6-8.9); Nucleated Red Blood Cells 0.5 /100 WBC (0); Platelet Count 260 K/mcL (140-400); Red Blood Count 2.93 M/mcL (3.82-4.97); Segmented Neutrophils % 84.4 %; White Blood Count 9.2 K/mcL (4.3-11.1)
[2019-09-05 04:27] LABS: Potassium 3.2 mEq/L (3.5-5.1)
[2019-09-05] MEDS: MetroNIDAZOLE 500 MG/100 ML 500 MG/100 ML BAG IVPB SCH ×3 (04:42→21:06)
[2019-09-05] MEDS ORDERED: levoFLOXacin 500 MG/100 ML 500 MG/100 ML BAG IVPB SCH ×2 (06:00)
[2019-09-05] MEDS: *HR* Heparin 5,000 UNIT/ML VIAL SQ SCH (06:43)
[2019-09-05] MEDS: Aspirin Enteric Coated 81 MG Tablet PO SCH (09:12)
[2019-09-05] MEDS: levETIRAcetam 250 MG TABLET PO SCH (09:12)
[2019-09-05] MEDS: Metoprolol XL (24 HR) Succ 25 MG TAB.ER.24H PO SCH (09:12)
[2019-09-05] MEDS: Nystatin Cream 15 GM TUBE TP SCH ×3 (09:13→21:06)
[2019-09-05] MEDS: Gentamicin Oint 15 GM TUBE TP SCH (09:13)
[2019-09-05] MEDS ORDERED: 0.9 % Sodium Chloride 1,000 ML IVC SCH (14:00)
[2019-09-05] MEDS ORDERED: *HR* Propofol 200 MG/20 ML VIAL IVP ONE (14:30)
[2019-09-05] MEDS ORDERED: Lidocaine -MPF 2% 2 ML VIAL ONE (14:30)
[2019-09-05] MEDS ORDERED: SODIUM CHLORIDE/NAHCO3/KCL/PEG 4,000 ML SOLN.RECON PO ONE (17:00)
[2019-09-05] MEDS: Pantoprazole 40 MG VIAL IVP SCH (17:27)
[2019-09-06] MEDS ORDERED: Levalbuterol Neb 1.25 MG/3 ML IH ONE (01:26)
[2019-09-06] MEDS: Pantoprazole 40 MG VIAL IVP SCH (05:45)
[2019-09-06] MEDS: Insulin LISPRO 300 UNITS/3 ML VIAL SQ SCH ×4 (06:01→19:49)
[2019-09-06] MEDS: MetroNIDAZOLE 500 MG/100 ML 500 MG/100 ML BAG IVPB SCH (06:01)
[2019-09-06 06:11] LABS: Basophils % 0.4 %; Eosinophils # 0.2 K/mcL (0.0-0.6); Eosinophils % 3.1 %; Hematocrit 25.1 % (35.3-44.9); Hemoglobin 8.7 g/dL (11.5-15.4); Lymphocytes # 0.5 K/mcL (0.6-4.6); Lymphocytes % 7.6 %; Mean Corpuscular HGB Conc 34.7 g/dL (31.6-35.5); Mean Corpuscular Hemoglobin 31.5 pg (28.0-33.3); Mean Corpuscular Volume 90.9 fL (83.0-100.0); Mean Platelet Volume 9.1 fL (9.4-12.4); Monocytes # 0.4 K/mcL (0.0-1.3); Neutrophils # 5.9 K/mcL (1.6-8.9); Platelet Count 225 K/mcL (140-400); Red Blood Count 2.76 M/mcL (3.82-4.97); Red Cell Distribution Width 17.8 % (11.5-14.5); Segmented Neutrophils % 82.9 %; White Blood Count 7.1 K/mcL (4.3-11.1)
[2019-09-06 06:17] LABS: INR 1.5; Prothrombin Time 16.8 Seconds (9.4-12.1)
[2019-09-06 06:26] LABS: Calcium 7.9 mg/dL (8.6-10.3); Potassium 3.8 mEq/L (3.5-5.1)
[2019-09-06] MEDS ORDERED: 0.9 % Sodium Chloride 250 ML IVC PRN (07:03)
[2019-09-06] MEDS ORDERED: 0.9 % Sodium Chloride 1,000 ML PRIME SCH (07:15)
[2019-09-06] MEDS: Gentamicin Oint 15 GM TUBE TP SCH ×2 (07:51→14:35)
[2019-09-06] MEDS ORDERED: Aminoglycoside Consult 1 EACH MC ONE (08:31)
[2019-09-06] MEDS ORDERED: Clindamycin 600 MG/50 ML 600 MG/50 ML IV.SOLN IVPB ONE (08:45)
[2019-09-06] MEDS: levETIRAcetam 250 MG TABLET PO SCH (08:56)
[2019-09-06] MEDS: Aspirin Enteric Coated 81 MG Tablet PO SCH (08:56)
[2019-09-06] MEDS: Metoprolol XL (24 HR) Succ 25 MG TAB.ER.24H PO SCH (08:57)
[2019-09-06] MEDS: cefTRIAXone 2,000 MG in 0.9 % Sodium Chloride Mini Bag 100 ML IVPB SCH ×2 (08:58→14:35)
[2019-09-06] MEDS: Nystatin Cream 15 GM TUBE TP SCH ×3 (09:09→19:50)
[2019-09-06] MEDS ORDERED: 0.9 % Sodium Chloride 500 ML ONE (09:46)
[2019-09-06] MEDS ORDERED: Heparin 1,000 UNITS/500 mL 500 ML ONE (09:47)
[2019-09-06] MEDS ORDERED: *HR* FentaNYL (PF) 100 MCG/2 ML VIAL ONE (09:49)
[2019-09-06] MEDS ORDERED: *HR* Midazolam HCl 2 MG/2 ML VIAL ONE (09:50)
[2019-09-06] MEDS ORDERED: *HR* Heparin 10,000 UNIT/10 ML VIAL IR ONE (10:03)
[2019-09-06] MEDS ORDERED: *HR* Heparin 5,000 UNIT/ML VIAL ONE (10:05)
[2019-09-06] MEDS: metroNIDAZOLE 500 MG TABLET PO SCH ×2 (16:10→19:49)
[2019-09-06] MEDS: Melatonin 3 MG TABLET PO PRN (19:49)
[2019-09-06] MEDS ORDERED: Vancomycin 500 MG in 0.9 % Sodium Chloride Mini Bag 100 ML IVPB ONE (20:00)
[2019-09-07 03:53] LABS: Basophils % 0.5 %; Eosinophils # 0.4 K/mcL (0.0-0.6); Eosinophils % 5.4 %; Hematocrit 26.5 % (35.3-44.9); Hemoglobin 8.6 g/dL (11.5-15.4); Immature Granulocytes % 1.1 % (0-4); Lymphocytes # 0.3 K/mcL (0.6-4.6); Lymphocytes % 5.2 %; Mean Corpuscular HGB Conc 32.5 g/dL (31.6-35.5); Mean Corpuscular Hemoglobin 30.8 pg (28.0-33.3); Mean Platelet Volume 9.2 fL (9.4-12.4); Monocytes # 0.5 K/mcL (0.0-1.3); Neutrophils # 5.2 K/mcL (1.6-8.9); Platelet Count 213 K/mcL (140-400); Red Blood Count 2.79 M/mcL (3.82-4.97); Red Cell Distribution Width 17.6 % (11.5-14.5); Segmented Neutrophils % 79.8 %; White Blood Count 6.5 K/mcL (4.3-11.1)
[2019-09-07 04:35] LABS: Calcium 7.7 mg/dL (8.6-10.3); Potassium 3.7 mEq/L (3.5-5.1)
[2019-09-07] MEDS: Aspirin Enteric Coated 81 MG Tablet PO SCH (09:13)
[2019-09-07] MEDS: levETIRAcetam 250 MG TABLET PO SCH (09:13)
[2019-09-07] MEDS: Insulin LISPRO 300 UNITS/3 ML VIAL SQ SCH ×4 (09:13→20:29)
[2019-09-07] MEDS: Nystatin Cream 15 GM TUBE TP SCH ×3 (09:14→20:34)
[2019-09-07] MEDS: Metoprolol XL (24 HR) Succ 25 MG TAB.ER.24H PO SCH (09:14)
[2019-09-07] MEDS: metroNIDAZOLE 500 MG TABLET PO SCH (09:14)
[2019-09-07] MEDS: cefTRIAXone 2,000 MG in 0.9 % Sodium Chloride Mini Bag 100 ML IVPB SCH (09:15)
[2019-09-07] MEDS: *HR* Heparin 5,000 UNIT/ML VIAL SQ SCH (16:55)
[2019-09-08 03:33] LABS: Basophils % 0.6 %; Eosinophils # 0.2 K/mcL (0.0-0.6); Eosinophils % 3.3 %; Hematocrit 26.9 % (35.3-44.9); Hemoglobin 8.8 g/dL (11.5-15.4); Immature Granulocytes % 1.6 % (0-4); Lymphocytes # 0.7 K/mcL (0.6-4.6); Lymphocytes % 10.3 %; Mean Corpuscular HGB Conc 32.7 g/dL (31.6-35.5); Mean Corpuscular Hemoglobin 30.7 pg (28.0-33.3); Mean Corpuscular Volume 93.7 fL (83.0-100.0); Mean Platelet Volume 8.8 fL (9.4-12.4); Monocytes # 0.5 K/mcL (0.0-1.3); Monocytes % 8.1 %; Neutrophils # 4.9 K/mcL (1.6-8.9); Platelet Count 203 K/mcL (140-400); Red Blood Count 2.87 M/mcL (3.82-4.97); Red Cell Distribution Width 17.6 % (11.5-14.5); Segmented Neutrophils % 76.1 %; White Blood Count 6.4 K/mcL (4.3-11.1)
[2019-09-08 03:51] LABS: Calcium 7.8 mg/dL (8.6-10.3); Potassium 3.5 mEq/L (3.5-5.1)
[2019-09-08] MEDS: *HR* Heparin 5,000 UNIT/ML VIAL SQ SCH ×2 (06:05→16:52)
[2019-09-08] MEDS: Insulin LISPRO 300 UNITS/3 ML VIAL SQ SCH ×4 (08:16→20:44)
[2019-09-08] MEDS: Nystatin Cream 15 GM TUBE TP SCH ×3 (08:16→20:45)
[2019-09-08] MEDS: Gentamicin Oint 15 GM TUBE TP SCH (08:17)
[2019-09-08] MEDS: cefTRIAXone 2,000 MG in 0.9 % Sodium Chloride Mini Bag 100 ML IVPB SCH (08:28)
[2019-09-08] MEDS: Aspirin Enteric Coated 81 MG Tablet PO SCH (08:29)
[2019-09-08] MEDS: Metoprolol XL (24 HR) Succ 25 MG TAB.ER.24H PO SCH (08:29)
[2019-09-08] MEDS: levETIRAcetam 250 MG TABLET PO SCH (08:29)
[2019-09-08] MEDS ORDERED: *HR* LORazepam 2 MG/ML VIAL IVP ONE (22:48)
[2019-09-08] MEDS ORDERED: Levalbuterol Neb 1.25 MG/3 ML ONE (23:02)
[2019-09-08] MEDS: Levalbuterol Neb 1.25 MG/3 ML IH SCH (23:04)
[2019-09-08] MEDS: Melatonin 3 MG TABLET PO PRN (23:22)
[2019-09-09] MEDS: Levalbuterol Neb 1.25 MG/3 ML IH SCH ×5 (03:20→22:30)
[2019-09-09 05:52] LABS: Hematocrit 26.4 % (35.3-44.9); Hemoglobin 8.3 g/dL (11.5-15.4); Mean Corpuscular HGB Conc 31.4 g/dL (31.6-35.5); Mean Corpuscular Hemoglobin 30.7 pg (28.0-33.3); Mean Corpuscular Volume 97.8 fL (83.0-100.0); Mean Platelet Volume 9.1 fL (9.4-12.4); Platelet Count 181 K/mcL (140-400); Red Cell Distribution Width 17.9 % (11.5-14.5); White Blood Count 6.8 K/mcL (4.3-11.1)
[2019-09-09] MEDS: *HR* Heparin 5,000 UNIT/ML VIAL SQ SCH ×2 (06:13→18:16)
[2019-09-09 06:17] LABS: Calcium 7.7 mg/dL (8.6-10.3); Potassium 3.7 mEq/L (3.5-5.1)
[2019-09-09] MEDS ORDERED: *HR* Heparin 10,000 UNIT/10 ML VIAL IV PRN ×2 (07:49)
[2019-09-09] MEDS ORDERED: 0.9 % Sodium Chloride 250 ML IVC PRN (07:49)
[2019-09-09] MEDS: Nystatin Cream 15 GM TUBE TP SCH ×2 (08:12→20:37)
[2019-09-09] MEDS: Gentamicin Oint 15 GM TUBE TP SCH (08:12)
[2019-09-09] MEDS: Insulin LISPRO 300 UNITS/3 ML VIAL SQ SCH ×3 (08:12→18:13)
[2019-09-09] MEDS: cefTRIAXone 2,000 MG in 0.9 % Sodium Chloride Mini Bag 100 ML IVPB SCH (08:30)
[2019-09-09] MEDS: Aspirin Enteric Coated 81 MG Tablet PO SCH (12:59)
[2019-09-09] MEDS: Metoprolol XL (24 HR) Succ 25 MG TAB.ER.24H PO SCH (13:03)
[2019-09-09] MEDS: levETIRAcetam 250 MG TABLET PO SCH (13:04)
[2019-09-09] MEDS ORDERED: *HR* FentaNYL (PF) 100 MCG/2 ML VIAL ONE (14:25)
[2019-09-09] MEDS ORDERED: *HR* Propofol 200 MG/20 ML VIAL IVP ONE (14:25)
[2019-09-09] MEDS ORDERED: rOPINIRole 0.25 MG TABLET PO PRN (15:54)
[2019-09-09] MEDS ORDERED: 0.9 % Sodium Chloride 1,000 ML PRIME SCH (15:54)
[2019-09-09] MEDS ORDERED: D5% in Water 1,000 ML IVC PRN (15:54)
[2019-09-09] MEDS ORDERED: Naloxone 0.4 MG/ML INJ IVP PRN (15:54)
[2019-09-09] MEDS ORDERED: *HR* Dextrose 50 % in Water (Syg) 50 ML SYRINGE IVP PRN (15:54)
[2019-09-09] MEDS ORDERED: Dextrose Gel 15 GM/37.5 ML TUBE PO PRN ×2 (15:54)
[2019-09-09] MEDS ORDERED: Melatonin 3 MG TABLET PO PRN (15:54)
[2019-09-09] MEDS ORDERED: Insulin LISPRO 300 UNITS/3 ML VIAL SQ SCH (21:00)
[2019-09-09] MEDS: Menthol 9.1 MG LOZENGE PO PRN (22:54)
[2019-09-10 02:38] LABS: Basophils # 0.1 K/mcL (0.0-0.2); Basophils % 0.7 %; Eosinophils % 0.3 %; Hematocrit 27.1 % (35.3-44.9); Hemoglobin 8.7 g/dL (11.5-15.4); Immature Granulocytes % 1.8 % (0-4); Lymphocytes # 0.8 K/mcL (0.6-4.6); Lymphocytes % 10.2 %; Mean Corpuscular HGB Conc 32.1 g/dL (31.6-35.5); Mean Corpuscular Hemoglobin 30.1 pg (28.0-33.3); Mean Corpuscular Volume 93.8 fL (83.0-100.0); Mean Platelet Volume 9.4 fL (9.4-12.4); Monocytes # 0.6 K/mcL (0.0-1.3); Monocytes % 8.5 %; Platelet Count 210 K/mcL (140-400); Red Blood Count 2.89 M/mcL (3.82-4.97); Red Cell Distribution Width 18.2 % (11.5-14.5); Segmented Neutrophils % 78.5 %; White Blood Count 7.6 K/mcL (4.3-11.1)
[2019-09-10 02:50] LABS: Potassium 4.1 mEq/L (3.5-5.1)
[2019-09-10] MEDS: Levalbuterol Neb 1.25 MG/3 ML IH SCH ×2 (03:25→09:58)
[2019-09-10] MEDS: *HR* Heparin 5,000 UNIT/ML VIAL SQ SCH (05:57)
[2019-09-10] MEDS: Insulin LISPRO 300 UNITS/3 ML VIAL SQ SCH ×2 (07:30→11:46)
[2019-09-10] MEDS: Menthol 9.1 MG LOZENGE PO PRN (07:38)
[2019-09-10] MEDS: Nystatin Cream 15 GM TUBE TP SCH (07:54)
[2019-09-10] MEDS ORDERED: Metoprolol XL (24 HR) Succ 25 MG TAB.ER.24H PO SCH (09:00)
[2019-09-10] MEDS ORDERED: levETIRAcetam 250 MG TABLET PO SCH (09:00)
[2019-09-10] MEDS ORDERED: cefTRIAXone 2,000 MG in 0.9 % Sodium Chloride Mini Bag 100 ML IVPB SCH (09:00)
[2019-09-10] MEDS ORDERED: Aspirin Enteric Coated 81 MG Tablet PO SCH (09:00)
[2019-09-10 10:45] VITALS: BP 102/67
== END 2019-09-10 13:04 | disposition home health service (06) | DRG 907 ==
LOC: INTOOBSV 18:19 → ICNU 18:19 → SUATTDRO 09-04 14:56 → 2ANU 09-04 15:01
PROVIDERS: ADMIT Pediatrics; ATTEND Internal Medicine
PROC: IRPERMA (2019-09-06 12:00)